=== PATIENT | female | born 1995 | race Two or more races ===

== ENCOUNTER 2020-07-14 16:55 | Emergency (ER) | payer OTHER ==
[~2020-07-14] VITALS: Ht 160 cm; Wt 86.8 kg
[2020-07-14 17:01] VITALS: BP 136/74
[2020-07-14] MEDS ORDERED: TRI-TAB (17:04)
--- NOTE | 2020-07-15 19:40 | ECGEPIP ---
[facility] - ED Test Date: 2020-07-14 Pat Name: DOUG LANTIGUA Department: Room: - Gender: Female Senior Risk Manager: MARIE : 1995 Requested By: Víctor Billy Order Number: [id number] Reading MD: Nila Augustine Measurements Intervals [place] Rate: 67 P: 67 [place]: 168 QRS: 58 QRSD: 84 T: 42 QT: 396 QTc: 418 Interpretive Statements Normal sinus rhythm with sinus arrhythmia No prior Electronically Signed on 07-15-2020 19:40:00 EDT by Nila Augustine
== END 2020-07-14 18:53 | disposition left against medical advice (07) ==
LOC: M ED 16:55
DX: Z53.21 Procedure and treatment not carried out due to patient leaving prior to being seen by health care provider (principal)

== ENCOUNTER → 2020-10-01 | Outpatient (CLI) | payer OTHER ==
[~2020-10-01] MED LIST: TRI-TAB
== END ==
LOC: M PLALAB 15:51
PROVIDERS: ATTEND Nurse Practitioner Family
DX: N92.6 Irregular menstruation, unspecified (principal)

== ENCOUNTER 2020-10-28 14:35 | Emergency (ER) | payer OTHER ==
[~2020-10-28] VITALS: Ht 160 cm; Wt 88.9 kg
[2020-10-28] MEDS ORDERED: PREN27TA3 (14:42)
[2020-10-28 16:02] LABS: BASO % 0.3 % (0.0-1.0); EOS # 0.1 10^3/uL (0.0-0.5); EOS % 0.8 % (0.0-3.0); HEMATOCRIT 37.9 % (36.0-47.0); HEMOGLOBIN 12.5 g/dl (12.0-15.5); LYMPH # 1.8 10^3/uL (1.5-5.0); LYMPH % 29.1 % (24.0-44.0); MEAN CORPUSCULAR HEMOGLOBIN 28.8 pg (27.0-33.0); MEAN CORPUSCULAR VOLUME 87.3 fl (80.0-96.0); MONO # 0.6 10^3/uL (0.0-0.8); NEUTROPHILS # 3.7 10^3/uL (1.5-8.5); NEUTROPHILS % 59.5 % (36.0-66.0); PLATELET COUNT, AUTOMATED 264 10^3/uL (150-450); RED BLOOD COUNT 4.34 10^6/uL (4.00-5.40); WHITE BLOOD COUNT 6.2 10^3/uL (4.0-10.0)
[2020-10-28 16:22] LABS: BLOOD UREA NITROGEN 10 MG/DL (7-18); CARBON DIOXIDE LEVEL 27 MEQ/L (21-32); CHLORIDE LEVEL 105 MEQ/L (98-107); CREATININE FOR GFR 0.67 MG/DL (0.55-1.30); GLOMERULAR FILTRATION RATE > 60.0 (>60); GLUCOSE, FASTING 102 MG/DL (70-100); SODIUM LEVEL 135 MEQ/L (136-145)
[2020-10-28 17:03] LABS: APPEARANCE, URINE CLEAR (CLEAR); BACTERIA, URINE AUTO NEGATIVE (NEGATIVE); BILIRUBIN, URINE AUTO NEGATIVE (NEGATIVE); BLOOD, URINE BLOOD NEGATIVE (NEGATIVE); COLOR, URINE YELLOW (YELLOW); GLUCOSE, URINE (UA) AUTO NEGATIVE (NEGATIVE); KETONE, URINE AUTO NEGATIVE (NEGATIVE); LEUKOCYTE ESTERASE, URINE AUTO NEGATIVE (NEGATIVE); NITRITE, URINE AUTO NEGATIVE (NEGATIVE); PROTEIN, URINE AUTO NEGATIVE (NEGATIVE); RBC, URINE AUTO 4 /HPF (0-3); SPECIFIC GRAVITY URINE AUTO 1.011 (1.002-1.035); SQUAMOUS EPITHELIAL CELL UR AU 1 /HPF (0-6); UROBILINOGEN, URINE AUTO 0.2 mg/dL (0.0-2.0); WBC, URINE AUTO 1 /HPF (0-3)
[2020-10-28 17:05] VITALS: BP 118/66
--- NOTE | 2020-10-29 23:59 | ECGEPIP ---
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 Order Number: [id number] Reading MD: Víctor Lozano Measurements Intervals [place] Rate: 80 P: 64 ID: 162 QRS: 40 QRSD: 82 T: 38 QT: 376 QTc: 433 Interpretive Statements Normal sinus rhythm INCOMPLETE RIGHT BUNDLE BRANCH BLOCK SIMILAR TO 07/14/20 Electronically Signed on 10-29-2020 23:59:21 EDT by Víctor Lozano
== END 2020-10-28 17:26 | disposition home or self-care (01) ==
LOC: M ED 14:35
DX: O99.891 Other specified diseases and conditions complicating pregnancy (principal); R55 Syncope and collapse; Z3A.00 Weeks of gestation of pregnancy not specified; Z91.013 Allergy to seafood

== ENCOUNTER → 2020-11-13 | Outpatient (CLI) | payer OTHER ==
[~2020-11-13] MED LIST changes: +PREN27TA3
[2020-11-13 11:38] LABS: BASO % 0.3 % (0.0-1.0); EOS # 0.1 10^3/uL (0.0-0.5); EOS % 0.8 % (0.0-3.0); HEMOGLOBIN 12.5 g/dl (12.0-15.5); LYMPH # 1.7 10^3/uL (1.5-5.0); LYMPH % 28.4 % (24.0-44.0); MEAN CORPUSCULAR HEMOGLOBIN 28.7 pg (27.0-33.0); MEAN CORPUSCULAR HGB CONC 32.9 g/dl (32.0-36.5); MEAN CORPUSCULAR VOLUME 87.4 fl (80.0-96.0); MONO # 0.6 10^3/uL (0.0-0.8); MONO % 9.5 % (2.0-8.0); NEUTROPHILS # 3.7 10^3/uL (1.5-8.5); NEUTROPHILS % 60.7 % (36.0-66.0); PLATELET COUNT, AUTOMATED 288 10^3/uL (150-450); RED BLOOD COUNT 4.35 10^6/uL (4.00-5.40); WHITE BLOOD COUNT 6.1 10^3/uL (4.0-10.0)
[2020-11-13 12:57] LABS: GC DNA AMPLIFICATION NEGATIVE (NEGATIVE)
[2020-11-13 13:57] LABS: HEPATITIS C VIRUS ABY INDEX 0.1 INDEX (<0.8); HIV 1&2 SCREEN CENTAUR NEGATIVE (NEGATIVE)
== END ==
LOC: M PLALAB 08:16
PROVIDERS: ATTEND Advanced Practice Midwife
DX: O30.041 Twin pregnancy, dichorionic/diamniotic, first trimester (principal); Z3A.00 Weeks of gestation of pregnancy not specified

== ENCOUNTER 2020-12-13 19:11 | Emergency (ER) | payer OTHER ==
[~2020-12-13] VITALS: Ht 160 cm; Wt 91.4 kg
[2020-12-13 19:13] VITALS: BP 113/79
[2020-12-13] MEDS ORDERED: ACET-840 PO (19:42)
--- OUTSIDE RECORDS SUMMARY | 2020-12-13 22:40 | CCD ---
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 Name Role Phone Jackelyn Guerra Unavailable PROBLEMS Type Condition ICD9-CM Code [id number] Code Onset Dates Condition S tatus W/U Status Risk SNOMED Code Notes Problem Missed menses N92.6 Active confirmed 243899 00 Problem Supervision of other normal Z34.80 Ac tive confirm 922986912 Problem Painful menstruation N94.6 Active confirmed 779391591 Problem Irregular menstrual bleeding N92.6 Active confirme d 43221377 ALLERGIES No Known Allergies ENCOUNTERS from 1995 to 2020-12-02 Encounter Location Date Provider Diagnosis [facility] [address] [place] [address] [place] [address] Nov, Jackelyn Guerra IMMUNIZATIONS No Information SOCIAL HISTORY Tobacco Use: Social History Observation Description Date Details (start date - stop date) Never Smoker Sex Assigned At : Social History Observation Description Sex Assigned At Unknown Education: Question Answer Notes Level of Education: College Audit Question Answer Notes Total Score: 1 Interpretation: Alcohol Education Language: Question Answer Notes Languages spoken: Andorran Christian: Question Answer Notes Christian 03 Sikhism Domestic Violence: Question Answer Notes Status: Sexual Hx: Question Answer Notes Had sex in the last 12 months (vaginal, oral, or anal)? Yes LMP: DEPO Have you ever had an STD? No with Men only Use protection? No Drug and Alcohol Question Answer Notes Total Score: 0 Interpretation: No problems reported Alcohol Screening: Question Answer Notes Did you have a drink containing alcohol in the past year? Ye s Points 1 Interpretation Negative How often did you have six or more drinks on one occas ion in the past year? Never (0 points) How many drinks did you have on a typica l day when you were drinking in the past year? 1 or 2 (0 points) How often did you have a drink containing alcohol in t he past year? Monthly or less (1 point) Tobacco Use: Question Answer Notes Are you a: never smoker REASON FOR REFERRAL No Information VITAL SIGNS No information MEDICATIONS Medication SIG (Take, Route, Frequency, Duration) Notes Start Da te End Date Status Amoxicillin-Pot Clavulanate 875-125 MG 1 tablet Orally every 12 hrs for 10 day(s) Sep, Not-Taking 27-1 MG 1 tablet Orally Once a day for 90 day(s) Sep, Active Albuterol Sulfate HFA 108 (90 Base) MCG/ACT 1 puff as needed Inhalation every 4 hrs for 30 Days Mar, Not-Taking Ferrous Gluconate 324 (38 Fe) MG 1 tablet with water o r juice between meals Orally twice per day for 60 day(s) Nov, Active Norgestim-Eth Estrad Triphasic 0.18/0.215/0.25 MG-35 M CG 1 tablet Orally Once a day for 90 day(s) Mar, Not-Taking Ibuprofen 800 MG 1 tablet with food or milk a s needed Orally Three times a day for 15 days Aug, Not-Taking Stool Softener 100 MG 1 capsule as needed for cons tipation Orally twice per day for 30 day(s) Nov, Active PROCEDURES No Information RESULTS No Results REASON FOR VISIT Appointment MEDICAL (GENERAL) HISTORY Type Description Date Surgical History No know Surgical history Hospitalization History COVID-19 for 1 month([place]) 03/2019 Goals Section No Information Health Concerns No Information MEDICAL EQUIPMENT No Information MENTAL STATUS No Information FUNCTIONAL STATUS No Information ASSESSMENTS No Information PLAN OF TREATMENT Medication Medication Name Sig Start Date Stop Date Stool Softener 100 MG 1 capsule as needed for cons tipation Orally twice per day for 30 day(s) Nov, Ferrous Gluconate 324 (38 Fe) MG 1 tablet with water o r juice between meals Orally twice per day for 60 day(s) Nov, Next Appt Details Provider Name:Jackelyn Geurra 2020-12-11 08:00:00 AM, [address] [facility], , [place], [address], Insurance Providers Payer Name Payer Address Payer Phone Insured Name Patient Relati onship to Insured Coverage Start Date Coverage End Date [address] [phone] DOUG LANTIGUA self
--- OUTSIDE RECORDS SUMMARY | 2020-12-13 22:40 | CCD ---
Author Author [facility] Organization [facility] Address Unknown Phone Unavailable Care Team Providers Care Sales And Service Engineer Name Role Phone Maring, Cornell PA Unavailable Unavailable Maring, Cornell PA Unavailable Unavailable Maring, Cornell PA Unavailable Unavailable Maring, Cornell PA Unavailable Unavailable Maring, Cornell PA Unavailable Unavailable Maring, Cornell PA Unavailable Unavailable Maring, Cornell PA Unavailable Unavailable Maring, Cornell PA Unavailable Unavailable Maring, Cornell PA Unavailable Unavailable Maring, Cornell PA Unavailable Unavailable Maring, Cornell PA Unavailable Unavailable Maring, Cornell PA Unavailable Unavailable Maring, Cornell PA Unavailable Unavailable Maring, Cornell PA Unavailable Unavailable Maring, Cornell PA Unavailable Unavailable Maring, Cornell PA Unavailable Unavailable Feola, T Rubi PA Unavailable Unavailable Feola, T Rubi PA Unavailable Unavailable Feola, T Rubi PA Unavailable Unavailable Feola, T Rubi PA Unavailable Unavailable Feola, T Rubi PA Unavailable Unavailable Feola, T Rubi PA Unavailable Unavailable Feola, T Rubi PA Unavailable Unavailable Feola, T Rubi PA Unavailable Unavailable Feola, T Rubi PA Unavailable Unavailable Feola, T Rubi PA Unavailable Unavailable Feola, T Rubi PA Unavailable Unavailable Feola, T Rubi PA Unavailable Unavailable Feola, T Rubi PA Unavailable Unavailable Feola, T Rubi PA Unavailable Unavailable Feola, T Rubi PA Unavailable Unavailable Feola, T Rubi PA Unavailable Unavailable Feola, T Rubi PA Unavailable Unavailable Feola, T Rubi PA Unavailable Unavailable Feola, T Rubi PA Unavailable Unavailable Feola, T Rubi PA Unavailable Unavailable Feola, T Rubi PA Unavailable Unavailable Feola, T Rubi PA Unavailable Unavailable Feola, T Rubi PA Unavailable Unavailable Feola, T Rubi PA Unavailable Unavailable Feola, T Rubi PA Unavailable Unavailable Feola, T Rubi PA Unavailable Unavailable Feola, T Rubi PA Unavailable Unavailable Feola, T Rubi PA Unavailable Unavailable Feola, T Rubi PA Unavailable Unavailable Feola, T Rubi PA Unavailable Unavailable Feola, T Rubi PA Unavailable Unavailable Feola, T Rubi PA Unavailable Unavailable Feola, T Rubi PA Unavailable Unavailable Feola, T Rubi PA Unavailable Unavailable Feola, T Rubi PA Unavailable Unavailable Feola, T Rubi PA Unavailable Unavailable Feola, T Rubi PA Unavailable Unavailable Feola, T Rubi PA Unavailable Unavailable Feola, T Rubi PA Unavailable Unavailable Feola, T Rubi PA Unavailable Unavailable Feola, T Rubi PA Unavailable Unavailable TURRIN, TAYE Unavailable Unavailable TURRIN, TAYE Unavailable Unavailable TURRIN, TAYE Unavailable Unavailable TURRIN, TAYE Unavailable Unavailable Brandyn, R Faina DESK REPRESENTATIVE Unavailable Unavailable Brandyn, R Faina DESK REPRESENTATIVE Unavailable Unavailable Brandyn, R Faina DESK REPRESENTATIVE Unavailable Unavailable Brandyn, R Faina DESK REPRESENTATIVE Unavailable Unavailable Brandyn, R Faina DESK REPRESENTATIVE Unavailable Unavailable Brandyn, R Faina DESK REPRESENTATIVE Unavailable Unavailable Brandyn, R Faina DESK REPRESENTATIVE Unavailable Unavailable Brandyn, R Faina DESK REPRESENTATIVE Unavailable Unavailable Brandyn, R Faina DESK REPRESENTATIVE Unavailable Unavailable Brandyn, R Faina DESK REPRESENTATIVE Unavailable Unavailable Brandyn, R Faina DESK REPRESENTATIVE Unavailable Unavailable Brandyn, R Faina DESK REPRESENTATIVE Unavailable Unavailable Brandyn, R Faina DESK REPRESENTATIVE Unavailable Unavailable Brandyn, R Faina DESK REPRESENTATIVE Unavailable Unavailable Brandyn, R Faina DESK REPRESENTATIVE Unavailable Unavailable Brandyn, R Faina DESK REPRESENTATIVE Unavailable Unavailable Brandyn, R Faina DESK REPRESENTATIVE Unavailable Unavailable Brandyn, R Faina DESK REPRESENTATIVE Unavailable Unavailable Brandyn, R Faina DESK REPRESENTATIVE Unavailable Unavailable Brandyn, R Faina DESK REPRESENTATIVE Unavailable Unavailable Brandyn, R Faina DESK REPRESENTATIVE Unavailable Unavailable Brandyn, R Faina DESK REPRESENTATIVE Unavailable Unavailable Brandyn, R Faina DESK REPRESENTATIVE Unavailable Unavailable Brandyn, R Faina DESK REPRESENTATIVE Unavailable Unavailable Brandyn, R Faina DESK REPRESENTATIVE Unavailable Unavailable Brandyn, R Faina DESK REPRESENTATIVE Unavailable Unavailable Brandyn, R Faina DESK REPRESENTATIVE Unavailable Unavailable Brandyn, R Faina DESK REPRESENTATIVE Unavailable Unavailable Brandyn, R Faina DESK REPRESENTATIVE Unavailable Unavailable Brandyn, R Faina DESK REPRESENTATIVE Unavailable Unavailable Brandyn, R Faina DESK REPRESENTATIVE Unavailable Unavailable Brandyn, R Faina DESK REPRESENTATIVE Unavailable Unavailable Brandyn, R Faina DESK REPRESENTATIVE Unavailable Unavailable Brandyn, R Faina DESK REPRESENTATIVE Unavailable Unavailable Brandyn, R Faina DESK REPRESENTATIVE Unavailable Unavailable Brandyn, R Faina DESK REPRESENTATIVE Unavailable Unavailable Brandyn, R Faina DESK REPRESENTATIVE Unavailable Unavailable Brandyn, R Faina DESK REPRESENTATIVE Unavailable Unavailable Brandyn, R Faina DESK REPRESENTATIVE Unavailable Unavailable Brandyn, R Faina DESK REPRESENTATIVE Unavailable Unavailable Re-disclosure Warning The records that you are about to access may contain information from federally-assisted alcohol or drug abuse programs. If such information is present, then the following federally mandated warning applies: This information has been disclosed to you from records protected by federal confidentiality rules (42 CFR part 2). The federal rules prohibit you from making any further disclosure of this information unless further disclosure is expressly permitted by the written consent of the person to whom it pertains or as otherwise permitted by 42 CFR part 2. A general authorization for the release of medical or other information is NOT sufficient for this purpose. The Federal rules restrict any use of the information to criminally investigate or prosecute any alcohol or drug abuse patient.The records that you are about to access may contain highly sensitive health information, the redisclosure of which is protected by Article 27-F of the [facility] Public Health law. If you continue you may have access to information: Regarding HIV / AIDS; Provided by facilities licensed or operated by the [facility] Office of Mental Health; or Provided by the [facility] Office for People With Developmental Disabilities. If such information is present, then the following [facility] mandated warning applies: This information has been disclosed to you from confidential records which are protected by state law. State law prohibits you from making any further disclosure of this information without the specific written consent of the person to whom it pertains, or as otherwise permitted by law. Any unauthorized further disclosure in violation of state law may result in a fine or prison sentence or both. A general authorization for the release of medical or other information is NOT sufficient authorization for further disc losure. Encounters Encounter Providers Location Date Indications Data Source(s ) Unknown [address] [facility] [place] [address] 12/01/2020 12:00:00 AM EDT eCW1 ([facility]) Unknown [address] [facility] [place] [address] 11/30/2020 12:00:00 AM EDT eCW1 ([facility]) Unknown [address] [facility] [place] [address] 11/13/2020 12:00:00 AM EDT eCW1 ([facility]) ([facility]) [facility] OB Visit [address] [place] [address] 11/12/2020 12:00:00 AM EDT eCW1 ([facility]) Unknown [address] [facility] [place] [address] 11/06/2020 12:00:00 AM EDT eCW1 ([facility]) Unknown [address] [facility] [place] [address] 10/26/2020 12:00:00 AM EDT eCW1 ([facility]) Unknown [address] [facility] [place] [address] 10/02/2020 12:00:00 AM EDT eCW1 ([facility]) Unknown [address] [facility] [address] 10/01/2020 12:00:00 AM EDT eCW1 ([facility]) Outpatient [address] [facility] [address] 09/28/2020 12:00:00 AM EDT eCW1 ([facility]) Outpatient 09/21/2020 02:43:40 PM EDT [facility] ([facility]) Outpatient Attender: Rubi STANTON 021 02:41:42 PM EDT - 09/21/2020 05:00:53 PM EDT [facility] ([facility] ) Outpatient Attender: Cornell STANTON 09/20/19 10:37:53 AM EDT - 09/19/2020 10:48:32 AM EDT [facility] ([facility] ) Emergency Attender: TAYE Rothmansultant: Faina adame DESK REPRESENTATIVE 08/21/2020 09:22:00 PM EDT - 08/22/2020 04:27:00 AM EDT [facility] Patient discharged. [place] [address] [facility] [place] [address] 08/21/2020 12:00:00 AM EDT eCW1 ([facility]) Unknown [address] [facility] [address] [place] [address] 08/12/2020 12:00:00 AM EDT eCW1 ([facility]) Unknown [address] [facility] [place] [address] 07/14/2020 12:00:00 AM EDT eCW1 ([facility]) [place] [address] [facility] [address] 03/26/2020 12:00:00 AM EST eCW1 ([facility]) Outpatient Attender: Rubi STANTON 021 11:08:53 AM EST - 03/13/2020 11:30:18 AM EST [facility] ([facility] ) Outpatient Attender: Cornell STANTON 03/07/19 09:53:03 AM EST - 03/07/2020 10:33:52 AM EST [facility] ([facility] ) Medications Medication Brand Name Start Date Product Form Dose Route Admi nistrative Instructions Pharmacy Instructions Status Indications Reaction Description Data Source(s) Docusate Sodium 100 MG Oral Capsule Stool Softener [address] ool Softener 100 MG 11/12/2020 12:00:00 AM EDT active Stool Softener 100 MG eCW1 ([facility]) ferrous gluconate 324 MG Oral Tablet Ferrous Gluconate 324 (38 Fe) MG Ferrous Gluconate 324 (38 Fe) MG 11/12/2020 12:00:00 AM EDT active Ferrous Gluconate 324 (38 Fe) MG eCW1 ([facility]) ferrous gluconate 324 MG Oral Tablet Ferrous Gluconate 324 (38 Fe) MG Ferrous Gluconate 324 (38 Fe) MG 11/12/2020 12:00:00 AM EDT active Ferrous Gluconate 324 (38 Fe) MG eCW1 ([facility]) Docusate Sodium 100 MG Oral Capsule Stool Softener [address] ool Softener 100 MG 11/12/2020 12:00:00 AM EDT active Stool Softener 100 MG eCW1 ([facility]) ferrous gluconate 324 MG Oral Tablet Ferrous Gluconate 324 (38 Fe) MG Ferrous Gluconate 324 (38 Fe) MG 11/12/2020 12:00:00 AM EDT active Ferrous Gluconate 324 (38 Fe) MG eCW1 ([facility]) Docusate Sodium 100 MG Oral Capsule Stool Softener [address] ool Softener 100 MG 11/12/2020 12:00:00 AM EDT active Stool Softener 100 MG eCW1 ([facility]) ferrous gluconate 324 MG Oral Tablet Ferrous Gluconate 324 (38 Fe) MG Ferrous Gluconate 324 (38 Fe) MG 11/12/2020 12:00:00 AM EDT active Ferrous Gluconate 324 (38 Fe) MG eCW1 ([facility]) ferrous gluconate 324 MG Oral Tablet Ferrous Gluconate 324 (38 Fe) MG Ferrous Gluconate 324 (38 Fe) MG 11/12/2020 12:00:00 AM EDT active Ferrous Gluconate 324 (38 Fe) MG eCW1 ([facility]) Docusate Sodium 100 MG Oral Capsule Stool Softener [address] ool Softener 100 MG 11/12/2020 12:00:00 AM EDT active Stool Softener 100 MG eCW1 ([facility]) Docusate Sodium 100 MG Oral Capsule Stool Softener [address] ool Softener 100 MG 11/12/2020 12:00:00 AM EDT active Stool Softener 100 MG eCW1 ([facility]) 27-1 MG 27-1 MG 10/01/2020 12:00:00 AM EDT 1.0 {tablet} active 27-1 MG eCW1 ([facility]) 27-1 MG 27-1 MG 10/01/2020 12:00:00 AM EDT 1.0 {tablet} active 27-1 MG eCW1 ([facility]) 27-1 MG 27-1 MG 10/01/2020 12:00:00 AM EDT 1.0 {tablet} active 27-1 MG eCW1 ([facility]) 27-1 MG 27-1 MG 10/01/2020 12:00:00 AM EDT 1.0 {tablet} active 27-1 MG eCW1 ([facility]) 27-1 MG 27-1 MG 10/01/2020 12:00:00 AM EDT 1.0 {tablet} active 27-1 MG eCW1 ([facility]) 27-1 MG 27-1 MG 10/01/2020 12:00:00 AM EDT 1.0 {tablet} active 27-1 MG eCW1 ([facility]) 27-1 MG 27-1 MG 10/01/2020 12:00:00 AM EDT 1.0 {tablet} active 27-1 MG eCW1 ([facility]) 27-1 MG 27-1 MG 10/01/2020 12:00:00 AM EDT 1.0 {tablet} active 27-1 MG eCW1 ([facility]) Amoxicillin 875 MG / Clavulanate 125 MG Oral Tablet Amoxicillin-Pot Clavulanate 875-125 MG Amoxicillin-Pot Clavulanate 875-125 MG 09/28/2020 12:00:00 AM ED T 1.0 {tablet} suspended Amoxicillin-Pot C lavulanate 875-125 MG eCW1 ([facility]) Amoxicillin 875 MG / Clavulanate 125 MG Oral Tablet Amoxicillin-Pot Clavulanate 875-125 MG Amoxicillin-Pot Clavulanate 875-125 MG 09/28/2020 12:00:00 AM ED T 1.0 {tablet} active Amoxicillin-Pot Cla vulanate 875-125 MG eCW1 ([facility]) Amoxicillin 875 MG / Clavulanate 125 MG Oral Tablet Amoxicillin-Pot Clavulanate 875-125 MG Amoxicillin-Pot Clavulanate 875-125 MG 09/28/2020 12:00:00 AM ED T 1.0 {tablet} suspended Amoxicillin-Pot C lavulanate 875-125 MG eCW1 ([facility]) Amoxicillin 875 MG / Clavulanate 125 MG Oral Tablet Amoxicillin-Pot Clavulanate 875-125 MG Amoxicillin-Pot Clavulanate 875-125 MG 09/28/2020 12:00:00 AM ED T 1.0 {tablet} active Amoxicillin-Pot Cla vulanate 875-125 MG eCW1 ([facility]) Amoxicillin 875 MG / Clavulanate 125 MG Oral Tablet Amoxicillin-Pot Clavulanate 875-125 MG Amoxicillin-Pot Clavulanate 875-125 MG 09/28/2020 12:00:00 AM ED T 1.0 {tablet} active Amoxicillin-Pot Cla vulanate 875-125 MG eCW1 ([facility]) Amoxicillin 875 MG / Clavulanate 125 MG Oral Tablet Amoxicillin-Pot Clavulanate 875-125 MG Amoxicillin-Pot Clavulanate 875-125 MG 09/28/2020 12:00:00 AM ED T 1.0 {tablet} active Amoxicillin-Pot Cla vulanate 875-125 MG eCW1 ([facility]) Amoxicillin 875 MG / Clavulanate 125 MG Oral Tablet Amoxicillin-Pot Clavulanate 875-125 MG Amoxicillin-Pot Clavulanate 875-125 MG 09/28/2020 12:00:00 AM ED T 1.0 {tablet} suspended Amoxicillin-Pot C lavulanate 875-125 MG eCW1 ([facility]) Amoxicillin 875 MG / Clavulanate 125 MG Oral Tablet Amoxicillin-Pot Clavulanate 875-125 MG Amoxicillin-Pot Clavulanate 875-125 MG 09/28/2020 12:00:00 AM ED T 1.0 {tablet} suspended Amoxicillin-Pot C lavulanate 875-125 MG eCW1 ([facility]) Amoxicillin 875 MG / Clavulanate 125 MG Oral Tablet Amoxicillin-Pot Clavulanate 875-125 MG Amoxicillin-Pot Clavulanate 875-125 MG 09/28/2020 12:00:00 AM ED T 1.0 {tablet} suspended Amoxicillin-Pot C lavulanate 875-125 MG eCW1 ([facility]) Ibuprofen 800 MG Oral Tablet Ibuprofen 800 MG 08/12/2020 12:00:00 AM E DT active Ibuprofen 800 MG [facility] Ibuprofen 800 MG Oral Tablet Ibuprofen 800 MG 08/12/2020 12:00:00 AM E DT suspended Ibuprofen 800 MG [facility]CW1 [facility]) Ibuprofen 800 MG Oral Tablet Ibuprofen 800 MG 08/12/2020 12:00:00 AM E DT active Ibuprofen 800 MG [facility]CW1 [facility]) Ibuprofen 800 MG Oral Tablet Ibuprofen 800 MG 08/12/2020 12:00:00 AM E DT suspended Ibuprofen 800 MG eCW1 [facility]) Ibuprofen 800 MG Oral Tablet Ibuprofen 800 MG 08/12/2020 12:00:00 AM E DT suspended Ibuprofen 800 MG eCW1 [facility]) Ibuprofen 800 MG Oral Tablet Ibuprofen 800 MG 08/12/2020 12:00:00 AM E DT active Ibuprofen 800 MG eCW1 [facility]) Ibuprofen 800 MG Oral Tablet Ibuprofen 800 MG 08/12/2020 12:00:00 AM E DT active Ibuprofen 800 MG eCW1 [facility]) Ibuprofen 800 MG Oral Tablet Ibuprofen 800 MG 08/12/2020 12:00:00 AM E DT suspended Ibuprofen 800 MG eCW1 [facility]) Ibuprofen 800 MG Oral Tablet Ibuprofen 800 MG 08/12/2020 12:00:00 AM E DT active Ibuprofen 800 MG eCW1 [facility]) Ibuprofen 800 MG Oral Tablet Ibuprofen 800 MG 08/12/2020 12:00:00 AM E DT active Ibuprofen 800 MG eCW1 [facility]) Ibuprofen 800 MG Oral Tablet Ibuprofen 800 MG 08/12/2020 12:00:00 AM E DT suspended Ibuprofen 800 MG eCW1 ([facility]) Norgestim-Eth Estrad Triphasic 0.18/0.215/0.25 MG-35 M CG Norgestim-Eth Estrad Triphasic 0.18/0.215/0.25 MG-35 MCG 03/26/2020 12:00:00 AM EST 1.0 {tablet} active Norgestim-Eth Estrad Trip hasic 0.18/0.215/0.25 MG-35 MCG eCW1 ([facility]) Norgestim-Eth Estrad Triphasic 0.18/0.215/0.25 MG-35 M CG Norgestim-Eth Estrad Triphasic 0.18/0.215/0.25 MG-35 MCG 03/26/2020 12:00:00 AM EST 1.0 {tablet} active Norgestim-Eth Estrad Trip hasic 0.18/0.215/0.25 MG-35 MCG eCW1 ([facility]) Albuterol Sulfate HFA 108 (90 Base) MCG/ACT Albuterol Sulfate HFA 108 (90 Base) MCG/ACT 03/26/2020 12:00:00 AM EST 1.0 {puff_as_needed} suspended Albuterol Sulfate HFA 108 (90 Base) MCG/ACT eCW1 ([facility]) Albuterol Sulfate HFA 108 (90 Base) MCG/ACT Albuterol Sulfate HFA 108 (90 Base) MCG/ACT 03/26/2020 12:00:00 AM EST 1.0 {puff_as_needed} suspended Albuterol Sulfate HFA 108 (90 Base) MCG/ACT eCW1 ([facility]) Albuterol Sulfate HFA 108 (90 Base) MCG/ACT Albuterol Sulfate HFA 108 (90 Base) MCG/ACT 03/26/2020 12:00:00 AM EST 1.0 {puff_as_needed} suspended Albuterol Sulfate HFA 108 (90 Base) MCG/ACT eCW1 ([facility]) Norgestim-Eth Estrad Triphasic 0.18/0.215/0.25 MG-35 M CG Norgestim-Eth Estrad Triphasic 0.18/0.215/0.25 MG-35 MCG 03/26/2020 12:00:00 AM EST 1.0 {tablet} active Norgestim-Eth Estrad Trip hasic 0.18/0.215/0.25 MG-35 MCG eCW1 ([facility]) Norgestim-Eth Estrad Triphasic 0.18/0.215/0.25 MG-35 M CG Norgestim-Eth Estrad Triphasic 0.18/0.215/0.25 MG-35 MCG 03/26/2020 12:00:00 AM EST 1.0 {tablet} suspended Norgestim-Eth Estrad Trip hasic 0.18/0.215/0.25 MG-35 MCG eCW1 ([facility]) Albuterol Sulfate HFA 108 (90 Base) MCG/ACT Albuterol Sulfate HFA 108 (90 Base) MCG/ACT 03/26/2020 12:00:00 AM EST 1.0 {puff_as_needed} active Albuterol Sulfate HFA 108 (90 Base) MCG/ACT eCW1 ([facility]) Albuterol Sulfate HFA 108 (90 Base) MCG/ACT Albuterol Sulfate HFA 108 (90 Base) MCG/ACT 03/26/2020 12:00:00 AM EST 1.0 {puff_as_needed} suspended Albuterol Sulfate HFA 108 (90 Base) MCG/ACT eCW1 ([facility]) Albuterol Sulfate HFA 108 (90 Base) MCG/ACT Albuterol Sulfate HFA 108 (90 Base) MCG/ACT 03/26/2020 12:00:00 AM EST 1.0 {puff_as_needed} suspended Albuterol Sulfate HFA 108 (90 Base) MCG/ACT eCW1 ([facility]) Albuterol Sulfate HFA 108 (90 Base) MCG/ACT Albuterol Sulfate HFA 108 (90 Base) MCG/ACT 03/26/2020 12:00:00 AM EST 1.0 {puff_as_needed} suspended Albuterol Sulfate HFA 108 (90 Base) MCG/ACT eCW1 ([facility]) Albuterol Sulfate HFA 108 (90 Base) MCG/ACT Albuterol Sulfate HFA 108 (90 Base) MCG/ACT 03/26/2020 12:00:00 AM EST 1.0 {puff_as_needed} active Albuterol Sulfate HFA 108 (90 Base) MCG/ACT eCW1 ([facility]) Norgestim-Eth Estrad Triphasic 0.18/0.215/0.25 MG-35 M CG Norgestim-Eth Estrad Triphasic 0.18/0.215/0.25 MG-35 MCG 03/26/2020 12:00:00 AM EST 1.0 {tablet} active Norgestim-Eth Estrad Trip hasic 0.18/0.215/0.25 MG-35 MCG eCW1 ([facility]) Norgestim-Eth Estrad Triphasic 0.18/0.215/0.25 MG-35 M CG Norgestim-Eth Estrad Triphasic 0.18/0.215/0.25 MG-35 MCG 03/26/2020 12:00:00 AM EST 1.0 {tablet} active Norgestim-Eth Estrad Trip hasic 0.18/0.215/0.25 MG-35 MCG eCW1 ([facility]) Norgestim-Eth Estrad Triphasic 0.18/0.215/0.25 MG-35 M CG Norgestim-Eth Estrad Triphasic 0.18/0.215/0.25 MG-35 MCG 03/26/2020 12:00:00 AM EST 1.0 {tablet} suspended Norgestim-Eth Estrad Trip hasic 0.18/0.215/0.25 MG-35 MCG eCW1 ([facility]) Norgestim-Eth Estrad Triphasic 0.18/0.215/0.25 MG-35 M CG Norgestim-Eth Estrad Triphasic 0.18/0.215/0.25 MG-35 MCG 03/26/2020 12:00:00 AM EST 1.0 {tablet} active Norgestim-Eth Estrad Trip hasic 0.18/0.215/0.25 MG-35 MCG eCW1 ([facility]) Albuterol Sulfate HFA 108 (90 Base) MCG/ACT Albuterol Sulfate HFA 108 (90 Base) MCG/ACT 03/26/2020 12:00:00 AM EST 1.0 {puff_as_needed} suspended Albuterol Sulfate HFA 108 (90 Base) MCG/ACT eCW1 ([facility]) Norgestim-Eth Estrad Triphasic 0.18/0.215/0.25 MG-35 M CG Norgestim-Eth Estrad Triphasic 0.18/0.215/0.25 MG-35 MCG 03/26/2020 12:00:00 AM EST 1.0 {tablet} suspended Norgestim-Eth Estrad Trip hasic 0.18/0.215/0.25 MG-35 MCG eCW1 ([facility]) Norgestim-Eth Estrad Triphasic 0.18/0.215/0.25 MG-35 M CG Norgestim-Eth Estrad Triphasic 0.18/0.215/0.25 MG-35 MCG 03/26/2020 12:00:00 AM EST 1.0 {tablet} active Norgestim-Eth Estrad Trip hasic 0.18/0.215/0.25 MG-35 MCG eCW1 ([facility]) Norgestim-Eth Estrad Triphasic 0.18/0.215/0.25 MG-35 M CG Norgestim-Eth Estrad Triphasic 0.18/0.215/0.25 MG-35 MCG 03/26/2020 12:00:00 AM EST 1.0 {tablet} active Norgestim-Eth Estrad Trip hasic 0.18/0.215/0.25 MG-35 MCG eCW1 ([facility]) Albuterol Sulfate HFA 108 (90 Base) MCG/ACT Albuterol Sulfate HFA 108 (90 Base) MCG/ACT 03/26/2020 12:00:00 AM EST 1.0 {puff_as_needed} suspended Albuterol Sulfate HFA 108 (90 Base) MCG/ACT eCW1 ([facility]) Albuterol Sulfate HFA 108 (90 Base) MCG/ACT Albuterol Sulfate HFA 108 (90 Base) MCG/ACT 03/26/2020 12:00:00 AM EST 1.0 {puff_as_needed} suspended Albuterol Sulfate HFA 108 (90 Base) MCG/ACT eCW1 ([facility]) Norgestim-Eth Estrad Triphasic 0.18/0.215/0.25 MG-35 M CG Norgestim-Eth Estrad Triphasic 0.18/0.215/0.25 MG-35 MCG 03/26/2020 12:00:00 AM EST 1.0 {tablet} suspended Norgestim-Eth Estrad Trip hasic 0.18/0.215/0.25 MG-35 MCG eCW1 ([facility]) Albuterol Sulfate HFA 108 (90 Base) MCG/ACT Albuterol Sulfate HFA 108 (90 Base) MCG/ACT 03/26/2020 12:00:00 AM EST 1.0 {puff_as_needed} active Albuterol Sulfate HFA 108 (90 Base) MCG/ACT eCW1 ([facility]) Albuterol Sulfate HFA 108 (90 Base) MCG/ACT Albuterol Sulfate HFA 108 (90 Base) MCG/ACT 03/26/2020 12:00:00 AM EST 1.0 {puff_as_needed} suspended Albuterol Sulfate HFA 108 (90 Base) MCG/ACT eCW1 ([facility]) Norgestim-Eth Estrad Triphasic 0.18/0.215/0.25 MG-35 M CG Norgestim-Eth Estrad Triphasic 0.18/0.215/0.25 MG-35 MCG 03/26/2020 12:00:00 AM EST 1.0 {tablet} suspended Norgestim-Eth Estrad Trip hasic 0.18/0.215/0.25 MG-35 MCG eCW1 ([facility]) Insurance Providers Payer name Policy type / Coverage type Policy ID Covered democrat ID Covered democrat's relationship to alejo Policy Alejo Plan Information [employer] [id number] Self [id number] RPR- Needs Payer Match [id number] Self [id number] [employer] emp [id number] Employee [id number] RPR- Needs Payer Match [id number] Self [id number] [facility] [id number] [facility] [id number] 18 [id number] Problems, Conditions, and Diagnoses Code Display Name Description Problem Type Effective Dates Data Source(s) Z6833 Body mass index [BMI] 33.0-33.9, adult B rhonda mass index [BMI] 33.0-33.9, adult Diagnosis 08/21/2020 09:22:00 PM EDT [facility] E669 Obesity, unspecified Obesity, unspecified Diagnosis 08/21/2020 09:22:00 PM EDT [facility] N3000 Acute cystitis without hematuria Acute cystitis without hematuria Diagnosis 08/21/2020 09:22:00 PM EDT [facility] R1031 Right lower quadrant pain Right lower quadrant pain Di agnosis 08/21/2020 09:22:00 PM EDT [facility] Z34.80 care Supervision of other normal P yakovlem 11/06/2020 12:00:00 AM EDT eCW1 ([facility]) N92.6 [id number] Missed menses Problem 10/01/2020 12:00:00 AM EDT eCW1 ([facility]) N92.6 [id number] Irregular menstrual bleeding Problem 021 12:00:00 AM EDT eCW1 ([facility]) N94.6 [id number] Painful menstruation Problem 08/12/2020 12:0 0:00 AM EDT eCW1 ([facility]) Surgeries/Procedures No Information Results ID Date Data Source URINE CULTURE 11/13/2020 12:00:00 AM EDT eCW1 ([facility]) Name Value Range Interpretation Code Description Data Abiola rce(s) Supporting Document(s) URINE CULTURE eCW1 ([facility]) ID Date Data Source HBSAG 11/13/2020 12:00:00 AM EDT [facility] [facility]) Name Value Range Interpretation Code Description Data Abiola rce(s) Supporting Document(s) NEGATIVE NEGATIVE HBsAg eCW1 ([facility]) ID Date Data Source RUBELLA IMMUNE STATUS IgG 11/13/2020 12:00:00 AM EDT eCW1 ([facility]) Name Value Range Interpretation Code Description Data Abiola rce(s) Supporting Document(s) IMMUNE IMMUNE RUBELLA IgG QUALITATIVE eCW1 ( [facility]) ID Date Data Source SYPHILIS ANTIBODY (RPR SCREEN) 11/13/2020 12:00:00 AM EDT eC W1 ([facility]) Name Value Range Interpretation Code Description Data Abiola rce(s) Supporting Document(s) NONREACTIVE NONREACTIVE SYPHILIS eCW1 ([facility]) ID Date Data Source [id number] 11/13/2020 12:00:00 AM EDT eCW1 ([facility]) Name Value Range Interpretation Code Description Data Abiola rce(s) Supporting Document(s) HIV 1and2 ANTIBODY SCREEN eCW1 ([facility]) ID Date Data Source HEPATITIS C ANTIBODY INDEX 11/13/2020 12:00:00 AM EDT eCW1 ( [facility]) Name Value Range Interpretation Code Description Data Abiola rce(s) Supporting Document(s) 0.1 <0.8 HEPATITIS C VIRUS KIMBERLY INDEX eC W1 ([facility]) ID Date Data Source CHLAMYDIA & GC DNA AMPLIFICAT 11/13/2020 12:00:00 AM EDT eCW 1 ([facility]) Name Value Range Interpretation Code Description Data Abiola rce(s) Supporting Document(s) Chlamydia trachomatis rRNA [Presence] in Unspecified specimen by Probe and target amplification method NEGATIVE NEGATIVE CHLAMYDIA DNA AMPLIFICATION eCW1 ([facility]) ID Date Data Source Type and Screen Prenatal1 11/13/2020 12:00:00 AM EDT eCW1 ([facility]) Name Value Range Interpretation Code Description Data Abiola rce(s) Supporting Document(s) NEGATIVE AB SCREEN PNP1 GEL (VIS) eCW1 ([facility]) ID Date Data Source [id number] 09/21/2020 02:45:00 PM EDT [facility] Name Value Range Interpretation Code Description Data Abiola rce(s) Supporting Document(s) SARS-CoV-2 RNA Resp Ql DAVID+probe NOT DETECTED [facility] This lab was ordered by KATHY michel and reported by KATHY Jasso. ID Date Data Source [id number] 08/21/2020 09:22:00 PM EDT [facility] 1 OrderSheet [facility] Emergency Department [address] [place] [address] Phone #: [phone]- [phone] 08/21/2020 21:08 Patient: DOUG LANTIGUA Sex: F : 1995 Age: 24yWEIGHT:86.6 kg (S) HEIGHT:63 inches (S) BMI:33.8ALLERGIES: Shellfish-derived ProductsCHIEF COMPLAINT: abdominal painDIAGNOSIS: Urinary tract infectious diseaseLAB ORDERSOrder Description Priority Entered Acknowledged InitialedCBC w Diff STAT 23:20 08/21/2020 23:49 Curtis Bailey Riccardo Laura R.N. MChristineDChristine;CMP STAT 23:20 08/21/2020 23:49 Curtis Bailey Riccardo Laura R.N. M.DChristine;Lipase STAT 23:20 08/21/2020 23:49 Curtis Bailey Riccardo Laura R.N. M.DChristine;Urinalysis (Clean STAT 23:20 08/21/2020 23:26 Vicente Petersen) Lee Pollack M.D.;Lactic Acid STAT 23:20 08/21/2020 23:49 Curtis Bailey Riccardo Laura R.NChristine MMagy;Beta- HCG, Qual STAT 23:20 08/21/2020 23:49 Lynn,Serum Taye Pollack.NChristine MMagy;Culture, Urine STAT 00:39 08/22/2020 00:40 Noemí ThaoUrine, Clean Taye Pollack M.D.;DIAGNOSTIC STUDY ORDERSOrder Description Priority Entered Acknowledged InitialedCT Abd PEL W/ IV STAT 00:39 08/22/2020 Ack'd: 00:41 Casandra Bailey R.N.Contrast Only Jon Pollackcardo Cancelled: Patient Refusal 00:43 Master(Oxygen?(No)) Ngoc; Bianka(IV?(Yes)) Reason for Study: rlq pain x 2 daysCT Abd PEL W/ IV STAT 00:57 08/22/2020 Ack'd: 00:57 01:30 Master,Contrast Only Candierin, TayeCasandra Peter 2 OrderSheet [facility] Emergency Department [address] [place] [address] Phone #: ext- [phone] 08/21/2020 21:08 Patient: DOUG LANTIGUA Sex: F : 1995 Age: 24y(Oxygen?(No)) Ngoc; R.N.(IV?(Yes)) Reason for Study: RLQ pain x 3 daysMEDICATION/IV/DRIP/FLUID ORDERSOrder Description Priority Entered Acknowledged InitialedNS IV 1000 mL 23:21 08/21/2020 23:51 Melaragno,Bolus: : Bolus 1000 Turrin, Taye Casandra R.N.mL (X1) Ngoc;Zofran 4 mg IVP X 1 23:21 08/21/2020 23:50 Melaragno,dose: 4 mg (NOW Turrin, Taye Casandra R.N.x1) Ngoc;Pepcid IVPB 20 23:21 08/21/2020 23:51 Melaragno,mg/50mL (NOW x1, Turrin, Taye Casandra R.N.Infuse over 30 M.D.;minutes.)Macrobid PO 100 04:11 08/22/2020 04:26 mg Curtis Bailey Riccardo Laura R.N. M.D.;Pyridium PO 100 04:11 08/22/2020 04:26 mg Curtis Bailey Riccardo Laura R.N. M.D.;GENERAL ORDERSOrder Description Priority Entered Acknowledged InitialedNPO 23:20 08/21/2020 23:49 Curtis Bailey Riccardo Laura R.N. M.D.;Saline Lock 23:08/21/2020 23:49 Curtis Bailey Riccardo Laura R.N. M.D.;[Electronically signed by Casandra Bailey R.N. (04:08/22/2020)][Electronically signed by Taye Pollack M.D. (04:08/22/2020)][Electronically locked by Casandra Bailey R.N. (:08/22/2020)] Name Value Range Interpretation Code Description Data Abiola rce(s) Supporting Document(s) ID Date Data Source [id number] 08/21/2020 09:22:00 PM EDT [facility] 1 Medication Reconciliation Report [facility] Emergency Department [address] [place] [address] Phone #: ext- [phone] 08/21/2020 21:08 Patient: DOUG LANTIGUA Sex: F : 1995 Age: 24yWeight: 86.6 kgHeight/Length: 63 in.BMI: 33.8ALLERGIES: Shellfish-derived ProductsThe patient's Home Medications are listed below:CONTINUE TAKING THE FOLLOWING MEDICATIONS: Control PillsThe source(s) of the original Home Medication information:Not obtained.The following Medications were given to the patient in the Emergency Department:Zofran [IVP] IVP 4 mg, administered: 23:50 08/21/2020epcid [IVPB] IVPB bolus 0, then 20 mg 100 mL/hr, administered: 23:51 08/21/2020odium Chloride [IV] IV Fluids bolus 0, then 1000 mL/hr, administered: 23:51 08/21/2020Macrobid [PO] PO 100 mg, administered: 04:26 08/22/2020yridium [PO] PO 100 mg, administered: 04:26 08/22/2020The following Medications were prescribed to the patient:Macrobid 100 mg capsule Take 1 capsule twice a day for 5 days -- Dispense 10 capsule. Refills: 0.Substitution permitted.Pharmacy - [facility] [id number] ; [place] [address]. FaxNumber: .Pyridium 100 mg tablet Take 1 tablet three times a day for 3 days -- D ispense 9 tablet. Refills: 0.Substitution permitted.Pharmacy - [facility] [id number] ; [place] [address]. . -- Taye Pollack M.D. Name Value Range Interpretation Code Description Data Abiola rce(s) Supporting Document(s) ID Date Data Source [id number] 08/21/2020 09:22:00 PM EDT [facility] 1 Medication Administration Record [facility] Emergency Department [address] [place] [address] Phone #: ext- [phone] 08/21/2020 21:08 Patient: DOUG LANTIGUA Sex: F : 1995 Age: 24yWeight: 86.6 kgHeight/Length: 63 inBMI: 33.8ALLERGIES: Shellfish-derived Products Date/Time Medication Administered Medication OrderedStart SODIUM CHLORIDE [IV] NS IV 1000 mL Bolus: : Bolus 242873:[id number] 08/21/2020 Dose: IV Fluids mL (X1)Casandra Bailey R.N. Rate: 1000 mL/hr over 1 hour(s)---- Dispensed: 1000 mL bagStop Site: #1 left AC02:03 08/22/2020Casandra Bailey R.N.Given ZOFRAN [IVP] (ONDANSETRON HCL) Zofran 4 mg IVP X 1 dose: 4 mg23:50 08/21/2020 Dose: 4 mg IVP (NOW x1)Casandra Bailey R.N. Site: #1 left ACStart PEPCID [IVPB] Pepcid IVPB 20 mg/50mL (NOW23:51 08/21/2020 Dose: 20 mg IVPB x1, Infuse over 30 minutes.)Casandra Bailey R.N. Rate: 100 mL/hr over 30 minute(s)---- Dispensed: 50 mL bagStop Site: #1 left AC00:24 08/22/2020Bianka block,Given MACROBID [PO] (NITROFURANTOIN Macrobid PO 100 mg04:26 08/22/2020 MONOHYD MACRO)Casandra Bailey R.N. Dose: 100 mg POGiven PYRIDIUM [PO] (PHENAZOPYRIDINE Pyridium PO 100 mg04:26 08/22/2020 HCL)Casandra Bailey R.N. Dose: 100 mg PO Name Value Range Interpretation Code Description Data Abiola rce(s) Supporting Document(s) ID Date Data Source [id number] 08/21/2020 09:22:00 PM EDT [facility] 1 General Instructions [facility] Emergency Department [address] [place] [address] Phone #: ext- [phone] 08/21/2020 21:08 Patient: DOUG LANTIGUA Sex: F : 1995 Age: 24yAcute urinary tract infection with cystitis. No hematuria.INSTRUCTIONSDrink plenty of fluids. Avoid alcohol. Avoid fatty, fried/greasy, lactose-containing (such as milk, cheeseand ice cream), salty and spicy foods. No alcohol.Warnings: Further evaluation is necessary. It is very important to follow up with a healthcare provider.GENERAL WARNINGS: Return or contact your physician immediately if your condition worsens orchanges unexpectedly, if not improving as expected, or if other problems arise. SPECIFICALLY, return ifyou develop pain in the abdomen, pelvis, back or shoulder, fever, vomiting, the inability to keep fluidsdown, blood in vomitus, blood in diarrhea, fainting or lightheadedness.Your Current Medications: Your current home medications have been reviewed.CONTINUE TAKING THE FOLLOWING MEDICATIONS: Control Pills*.Prescription Medications:Macrobid 100 mg capsule Take 1 capsule twice a day for 5 days -- Dispense 10 capsule. Refills: 0.Substitution permitted.[facility] [id number] ; [place] [address]. .Pyridium 100 mg tablet Take 1 tablet three times a day for 3 days -- Dispense 9 tablet. Refills: 0.Substitution permitted.[facility] [id number] ; [place] [address]. .Follow-up:Return to the emergency department as needed. Follow up with your healthcare provider in three dayseven if well. Call for an appointment. Reason for referral: evaluation and treatment. Summary of careprovided to patient via paper.Understanding of the discharge instructions verbalized by patient. Expected course of illness, dischargeinstructions, activity level, diet, prescriptions x2, follow-up appointment and risks and benefits of treatmentreviewed with patient and spouse and understanding verbalized. Agrees to plan of care. 2 General Instructions [facility] Emergency Department [address] [place] [address] Phone #: ext- [phone] 08/21/2020 21:08 Patient: DOUG LANTIGUA Sex: F : 1995 Age: 24y ADDITIONAL INFORMATIONBladder Infection, Female (Adult)Urine normally doesn't have any germs (bacteria) in it. But bacteria can get into the urinary tract fromthe skin around the rectum. Or they can travel in the blood from other parts of the body. Once theyare in your urinary tract, they can cause infection in these areas: The urethra (urethritis) The bladder (cystitis) The kidneys (pyelonephritis)The most common place for an infection is in the bladder. This is called a bladder infection. This isone of the most common infections in women. Most bladder infections are easily treated. They arenot serious unless the infection spreads to the kidney.The terms bladder infection, UTI, and cystitis are often used to describe the same thing. But they arenot always the same. Cystitis is an inflammation of the bladder. The most common cause of cystitis isan infection.SymptomsThe infection causes inflammation in the urethra and bladder. This causes many of the symptoms.The most common symptoms of a bladder infection are: 3 General Instructions [facility] Emergency Department [address] [place] [address] Phone #: ext- [phone] 08/21/2020 21:08 Patient: DOUG LANTIGUA Sex: F : 1995 Age: 24y Pain or burning when urinating Having to urinate more often than normal Urgent need to urinate Only a small amount of urine comes out Blood in urine Belly (abdominal) discomfort. This is often in the lower belly above the pubic bone. Cloudy urine Strong- or bad-smelling urine Unable to urinate (urinary retention) Unable to hold urine in (urinary incontinence) Fever Loss of appetite Confusion (in older adults)CausesBladder infections are not contagious. You can't get one from someone else, from a toilet seat, orfrom sharing a bath.The most common cause of bladder infections is bacteria from the bowels. The bacteria get onto theskin around the opening of the urethra. From there, they can get into the urine. Then they travel up tothe bladder, causing inflammation and infection. This often happens because of: Wiping incorrectly after urinating. Always wipe from front to back. Bowel incontinence Procedures such as having a catheter put in Older age Not emptying your bladder. This can give bacteria a chance to grow in your urine. Fluid loss (dehydration) Constipation 4 General Instructions [facility] Emergency Department [address] [place] [address] Phone #: ext- [phone] 08/21/2020 21:08 Patient: DOUG LANTIGUA Sex: F : 1995 Age: 24y Having sex Using a diaphragm for controlTreatmentBladder infections are diagnosed by a urine test and urine culture. They are treated with antibiotics.They often clear up quickly without problems. Treatment helps prevent a more serious kidneyinfection.MedicinesMedicines can help in the treatment of a bladder infection: Take antibiotics until they are used up, even if you feel better. It's important to finish them to make sure the infection has cleared. You can use acetaminophen or ibuprofen for pain, fever, or discomfort, unless another medicine was prescribed. If you have long-term (chronic) liver or kidney disease, talk with your healthcare provider before using these medicines. Also talk with your provider if you've ever had a stomach ulcer or GI (gastrointestinal) bleeding, or are taking blood-thinner medicines. If you are given phenazopydridine to reduce burning with urination, it will make your urine a bright orange color. This can stain clothing.Care and preventionThese self-care steps can help prevent future infections: Drink plenty of fluids. This helps to prevent dehydration and flush out your bladder. Do this unless you must restrict fluids for other health reasons, or your healthcare provider told you not to. Clean yourself correctly after going to the bathroom. Wipe from front to back after using the toilet. This helps prevent the spread of bacteria. Urinate more often. Don't try to hold urine in for a long time. Wear loose-fitting clothes and cotton underwear. Don't wear tight-fitting pants. Improve your diet and prevent constipation. Eat more fresh fruits and vegetables, and fiber. Eat less junk foods and fatty foods. Don't have sex until your symptoms are gone. Don't have caffeine, alcohol, and spicy foods. These can irritate your bladder. 5 General Instructions [facility] Emergency Department [address] [place] [address] Phone #: ext- [phone] 08/21/2020 21:08 Patient: DOUG LANTIGUA Sex: F : 1995 Age: 24y Urinate right after you have sex to flush out your bladder. If you use control pills and have frequent bladder infections, discuss it with your healthcare provider.Follow-up careCall your healthcare provider if all symptoms are not gone after 3 days of treatment. This is especiallyimportant if you have repeat infections.If a culture was done, you will be told if your treatment needs to be changed. If directed, you cancall to find out the results.If X-rays were done, you will be told if the results will affect your treatment.Call [phone] if any of the following occur: Trouble breathing Hard to wake up or confusion Fainting (loss of consciousness) Fast heart rateWhen to get medical adviceCall your healthcare provider right away if any of these occur: Fever of 100.4F (38.0C) or higher, or as directed by your healthcare provider Symptoms are not better after 3 days of treatment Back or belly pain that gets worse Repeated vomiting, or unable to keep medicine down Weakness or dizziness Vaginal discharge Pain, redness, or swelling in the outer vaginal area (labia) 6930-1068 [employer]. [address] [place] [address]. All rights reserved. This information is not intended as asubstitute for professional medical care. Always follow your healthcare professional's instructions. 6 General Instructions [facility] Emergency Department [address] [place] [address] Phone #: ext- [phone] 08/21/2020 21:08 Patient: DOUG LANTIGUA Sex: F : 1995 Age: 24yYou have been given the following additional information:Bladder Infection, Female (Adult)(Electronically signed by Taye Pollack M.D. 08/22/2020 04:31) Name Value Range Interpretation Code Description Data Abiola rce(s) Supporting Document(s) ID Date Data Source [id number] 08/21/2020 09:22:00 PM EDT [facility] 1 Clinical Report - Nurses [facility] Emergency Department [address] [place] [address] Phone #: ext [phone] 08/21/2020 21:08 Patient: DOUG LANTIGUA Sex: F : 1995 Age: 24yTRIAGEArrived by private vehicle. Historian: patient. Accompanied by family.Acuity: LEVEL 3.Chief Complaint: ABDOMINAL PAIN.Alert. No acute distress.( Patient arrives c/o abdominal pain since Monday. Pt states pain has gotten worse. Pt states RLQ anddescribes pain as "my insides feel like they are on fire". 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 (IBU last dose couple hrs ago). --21:49 08/21/20 Casandra Bailey R.N.21:45 08/21/20. BP: 120/75. HR: 90. RR: 17. O2 saturation: 97%. Temp: 97.9 F. Pain level now 11/15.--21:49 08/21/20 Casandra Bailey R.N.Weight: 86.6 kg stated. Height/Length: 63 inches Per Patient. BMI: 33.8. --21:44 08/21/20 Casandra Bailey R.N.MedicationsBirth Control Pills. --21:48 08/21/20 Casandra Bailey R.N.AllergiesShellfish-derived Products. --21:48 08/21/20 Casandra Bailey R.N.HistoryPAST MEDICAL HX: Immunizations: up-to-date. Last normal menstrual period- August 10 2020. Last oralintake by patient was (6 pm).SOCIAL HX: Never smoker. Occasional alcohol use. No drug use. ( COVID screen negative). Shehas not traveled outside the [place]Infectious disease exposure: No infectious disease exposure. Patient is not a known carrier of tuberculosis,hepatitis, HIV, MRSA or VRE. Patient is not a known carrier of CRE.SELF HARM ASSESSMENT: Self harm assessment was performed. The patient answered "no" to thequestion(s) "Have you recently felt down, depressed, or hopeless?", "Do you have thoughts of harming orkilling yourself?", "Do you have a plan for harming or killing yourself?", "Have you recently had thoughtsabout harming or killing others?", "Do you have any dangerous items in your possession?", "Have younoticed less interest or pleasure in doing things?", "Are you here because you tried to hurt yourself?" and"Have you ever tried to hurt yourself before today?". 2 Clinical Report - Nurses [facility] Emergency Department [address] [place] [address], [place] [address] Phone #: ext- [phone] 08/21/2020 21:08 ------- Patient: DOUG LANTIGUA Sex: F : 1995 Age: 24y ABUSE ASSESSMENT: Abuse assessment. The patient had positive responses to the question(s) "Do you feel safe in your home?", "Are you afraid to go home?", "Has anyone hurt you or threatened to hurt you?", "Are you afraid of your partner?" and "Have children witnessed violence in the home?". Abuse denied. NUTRITIONAL RISK ASSESSMENT: The nutritional risk assessment revealed no deficiencies. FUNCTIONAL ASSESSMENT: Functional assessment: no impairments noted. LEARNING NEEDS ASSESSMENT: The learning needs assessment revealed no barriers. FALL RISK ASSESSMENT: Fall risk assessment completed. No risk factors identified. SKIN INTEGRITY ASSESSMENT: Skin integrity risk assessment completed. No skin integrity risk identified. --21:49 08/21/20 Casandra Bailey R.N. Interventions Identification band on patient. To treatment room. --21:49 08/21/20 Casandra Bailey R.N.PHYSICAL ASSESSMENTAmbulatory to room. Patient gowned.GENERAL / NEURO / PSYCH: Alert. Oriented X 4. Appears in no acute distress.HEENT: Mucous membranes are pink.RESPIRATORY: Respirations not labored. Breath sounds within normal limits.CVS: Normal sinus rhythm noted. Capillary refill less than 2 seconds.GI / : The patient has had nausea. Abdomen soft and nontender. Bowel sounds within normal limits.( RLQ pain since Monday, worse today. Denies v/d.).SKIN: Skin is warm and dry. --22:37 08/21/20 Casandra Bailey R.N.NURSING PROGRESS NOTES( Patient back to waiting room at this time.). --21:50 08/21/20 Casandra Bailey R.N. Patient gowned. Head of bed elevated. Reassurance given. Two patient ident ifiers checked. Call light placed in reach. Side rails up x 2. Bed placed in lowest position. Brakes of bed on. --22:38 08/21/20 Casandra Bailey R.N. late entry - 23:30 08/21/20. Reassurance given. Rounding: Pain: assessed pain level. Position: states comfortable. Personal care / toileting: denies toileting needs. Proximity of possessions / care items: call light within easy reach. Plug ins: assured IV pump plugged in; checked status of equipment in use; located all cords, tubes, and lines to prevent fall hazard. --02:22 08/22/20 Bianka Thao 23:50 08/21/2020 Site #1 started via IV in the left antecubital space with an 22g angiocath, with aseptic technique; two attempts. Blood drawn: rainbow set. Sent to the lab. Saline lock flushed with 10 mL saline. 3 Clinical Report - Nurses [facility] Emergency Department [address] [place] [address] Phone #: ext- [phone] 08/21/2020 21:08 Patient: DOUG LANTIGUA Sex: F : 1995 Age: 24y--23:50 08/21/20 Casandra Bailey R.N.23:50 08/21/2020 Zofran (Ondansetron HCl) IVP 4 mg given via site #1. Allergies verified and confirmed 5rights. IV patency established. IV site checked: no pain, redness, or swelling. IV flushed thoroughly pre-and post-medication administration. IVP given by RN. Information reviewed with patient. Verbalizesunderstanding. --23:50 08/21/20 Casandra Bailey R.N.23:51 08/21/2020 Started 20 mg of Pepcid IVPB in bag #1 50 mL; at 100 mL/hr over 30 minute(s) via site#1. via IV pump. Allergies verified and confirmed 5 rights. IV patency established. IV site checked: no pain,redness, or swelling. IV flushed thoroughly pre- and post-medication administration. Information reviewedwith patient. Verbalizes understanding. --23:51 08/21/20 Casandra Bailey R.N.23:51 08/21/2020 Started bag #1 1000 mL IV Fluids Sodium Chloride; at 1000 mL/hr over 1 hour(s) via site#1 via IV pump. Allergies verified and confirmed 5 rights. IV patency established. IV site checked: no pain,redness, or swelling. IV flushed thoroughly pre- and post-medication administration. Information reviewedwith patient. Verbalizes understanding. --23:51 08/21/20 Casandra Bailey R.N.00:24 08/22/2020 Pepcid IVPB via IV site #1 Discontinued: completed. Total amount infused: 50 mL. IVpatency established. IV site checked: no pain, redness, or swelling. IV flushed thoroughly. --00:39 08/22/20Bianka Thao( Patient refusing CT scan. Educated on reasons it was ordered and risk of refusing. Patient statesunderstanding and continues to refuse due to "not wanting to wait for it to come back".). --00:44 08/22/20Devora Thaoate entry - 00:30 08/22/20. Reassurance given.Rounding: Pain: assessed pain level. Position: states comfortable. Personal care / toileting: denies toiletingneeds. Proximity of possessions / care items: call light within easy reach. Plug ins: assured IV pumpplugged in; checked status of equipment in use; located all cords, tubes, and lines to prevent fall hazard.--02:23 08/22/20 Bianka Thao00:58 08/22/2020 Site #2 started via IV in the right forearm with an 20g angiocath, with aseptic techniqueand good blood return; two attempts. Saline lock flushed with saline. --00:58 08/22/20 Isaura Thao entry - 01:30 08/22/20. Reassurance given.Rounding: Pain: assessed pain level. Position: states comfortable. Personal care / toileting: denies toiletingneeds. Proximity of possessions / care items: call light within easy reach. Plug ins: assured IV pumpplugged in; checked status of equipment in use; located all cords, tubes, and lines to prevent fall hazard.--02:23 08/22/20 Bianka Thao02:03 08/22/2020 IV Fluids Sodium Chloride via IV site #1 Discontinued: completed. Total amount infused:1000 mL. IV patency established. IV site checked: no pain, redness, or swelling. IV flushed thoroughly. 4 Clinical Report - Nurses [facility] Emergency Department [address] [place] [address] Phone #: ext- [phone] 08/21/2020 21:08 Patient: DOUG LANTIGUA Sex: F : 1995 Age: 24y --02:03 08/22/20 Casandra Bailey R.N. 03:12 08/22/2020 Site #1 removed. Catheter intact. Bandaid applied (Patient demanding removal, states it's uncomfortable. Patient agrees to keep site #2 [address] until discharge.). --03:12 08/22/20 Bianka Thao 04:26 08/22/2020 Macrobid (Nitrofurantoin Monohyd Macro) PO 100 mg given. Allergies verified and confirmed 5 rights. Information reviewed with patient. Verbalizes understanding. --04:26 08/22/20 Casandra Bailey R.N. 04:08/22/2020 Pyridium (Phenazopyridine HCl) PO 100 mg given. Allergies verified and confirmed 5 rights. Information reviewed with patient. Verbalizes understanding. --04:08/22/20 Casandra Bailey R.N.DISPOSITION / DISCHARGE 04:08/22/2020 Site #2 removed upon discharge. Bandage applied. --04:08/22/20 Casandra Bailey R.N. Condition at departure: stable. No learning barriers present. Discharge instructions provided and reviewed with the patient. Reviewed warnings. Reviewed medication(s) side effects, precautions, dosing and course information. Prescription(s) given to the patient and sent electronically to pharmacy. Medication(s) for home use given to the patient per protocol. Treatments reviewed. Reviewed referral to family practice for followup. Patient verbalized understanding. Written instructions provided in Croatian. The patient was discharged home and accompanied by spouse. She left ambulatory and via private vehicle. Spouse driving. --04:08/22/20 Casandra Bailey R.N. 04:08/22/20. BP: unable to obtain. HR: unable to obtain. RR: unable to obtain. O2 saturation: unable to obtain. Temp: unable to obtain. Pain level now unable to obtain. Additional comments: Pt refused d/c VS. --04:08/22/20 Casandra Bailey R.N.Locked/Released at 08/22/2020 04:27 by Casandra Bailey R.N. Name Value Range Interpretation Code Description Data Abiola rce(s) Supporting Document(s) ID Date Data Source [id number] 0001 08/21/2020 09:22:00 PM EDT [facility] 1 Clinical Report - Physicians/Mid Levels [facility] Emergency Department [address] [place] [address] Phone #: ext- [phone] 08/21/2020 21:08 Patient: DOUG LANTIGUA Sex: F : 1995 Age: 24y Time Seen: 23:15 08/21/2020; initial patient contact. Arrived- By private vehicle. Historian- patient. Disposition decision: 04:18 08/22/2020.HISTORY OF PRESENT ILLNESS Chief Complaint: ABDOMINAL PAIN. This started 4 days ago and is still present and worsening. It was gradual in onset and has been constant. It is described as "pain". No radiation. It is described as located in the right lower quadrant and left lower quadrant and in the lower abdomen. At its maximum, severity described as severe and 10 / 10. When seen in the E.D., severity described as severe and 8 / 10. Modifying factors- worsened by movement and walking. Relieved by rest. Not relieved by anything. The patient has had nausea. No loss of appetite, vomiting or diarrhea. No recent travel. Similar symptoms previously. None. Recent medical care: Not recently seen/assessed.REVIEW OF SYSTEMSLast normal menstrual period- 7-5-21. 1. Para 1. No constipation, black stools, hematemesis,difficulty with urination or pain with urination. No urinary frequency, bloody stools, fever, headache or sorethroat. No blurred vision, chest pain, difficulty breathing, cough or joint pain. No skin rash, chills or backpain. The patient has not had weight loss. All other systems reviewed and are negative.PAST HISTORYSee nurses notes. Medications: Control Pills. Allergies: Shellfish-derived Products.SOCIAL HISTORYNever smoker. Occasional alcohol use. No drug use.ADDITIONAL NOTESThe nursing notes have been reviewed with agreement regarding the chief complaint, HPI, ROS, PMH andpatient medications and allergies.PHYSICAL EXAMVital Signs: 08/21/2020 21:45 BP: 120/75. MAP: 90. HR: 90. RR: 17. O2 saturation: 97%. Temp: 97.9 F.Have been reviewed. Oxygen saturation normal. 2 Clinical Report - Physicians/Mid Levels [facility] Emergency Department [address] [place] [address] Phone #: ext- [phone] 08/21/2020 21:08 [id number] Sex[facility] F : 1995 Age: 24y Appearance: Alert. Oriented X3. No acute distress. Eyes: Pupils equal, round and reactive to light. Eyes normal inspection. ENT: Nose normal. Pharynx normal. Neck: Normal inspection. Neck supple. CVS: Normal heart rate and rhythm. Heart sounds normal. Pulses normal. Respiratory: No respiratory distress. Painless inspiration. Breath sounds normal. Chest nontender. Abdomen: Soft. Mild tenderness in the right lower quadrant. No guarding, rebound tenderness or Burr's sign present. Bowel sounds normal. No organomegaly. No mass. Femoral pulses equal. Mildly obese. Back: Normal inspection. No CVA tenderness. Skin: Skin warm and dry. Normal skin color. No rash. Normal skin turgor. Extremities: Extremities exhibit normal ROM. No lower extremity edema. Neuro: Oriented X 3. No motor deficit. No sensory deficit.LABS, X-RAYS, AND EKGAbdominal CT: REPORT SUBMISSION DATE: Aug 22, 2020 4:08:46 AM EDT NAME: DOUG LANTIGUA STUDY INITIATED: Aug 22, 2020 1:52:18 AM EDT STUDY RECEIVED: Aug 22, 2020 2:09:34 AM EDT GENDER: F MODALITY TYPE: CT\\SR : 89 DESCRIPTION: CT ABD PELVIS W/ IV ONLY INSTITUTION: [facility] ORDERING PHYSICIAN: Taye Pollack PATIENT HISTORY: ABD/PEL (DICOM Hx) EXAM: CT Abdomen and Pelvis with IV contrast CLINICAL HISTORY: CT ABD PELVIS W/IV CONTRAST DX: RLQ PAIN X 3DAYS. PT RECEIVED 75 ML ISOVUE 370 EXP 06/28 [id number] BUN 8 CREATINE 0.6 GFR>60. ACTUAL DOSE 683.5mGY*cm Patient has negative beta. Patient shielded. Verification of 2 patient identifiers performed. Time Out performed. Correct patient with 2 identifiers, type and amount of contrast used, correct body part and side all verified prior to examination. TECHNIQUE: Axial computed tomography images of the abdomen and pelvis with intravenous contrast. / All CT scans at this facility use dose modulation, iterative reconstruction, and/or weight-based dosing when appropriate to reduce radiation dose to as low as reasonably achievable. CONTRAST: with intravenous contrast. With; PT RECEIVED 75 ML ISOVUE 370 EXP 06/28 3 Clinical Report - Physicians/Mid [facility] Emergency Department [address] [place] [address] Phone #: ext- [phone] 08/21/2020 21:08 Patient: DOUG LANTIGUA Sex: F : 1995 Age: 24yCOMPARISON: None provided.FINDINGS:LUNG BASES: The lung bases appear clear. No pleural effusions are seen.LIVER: Unremarkable.GALLBLADDER AND BILE DUCTS: The gallbladder appears within normal limits. No radioopaquegallstones are seen. No biliary ductal dilatation is evident.PANCREAS: Unremarkable.SPLEEN: Unremarkable.ADRENAL GLANDS: Unremarkable.KIDNEYS, URETERS, AND BLADDER: The kidneys appear within normal limits. There is nohydronephrosis or hydroureter. No urinary calculi are seen.STOMACH AND BOWEL: Unremarkable appearance of the stomach and bowel. No evidence of bowelobstruction. No evidence suggesting enteritis or colitis.APPENDIX: Normal appendix.PERITONEUM: No free fluid. No free air.LYMPH NODES: No lymphadenopathy is evident.REPRODUCTIVE: Unremarkable as visualized.VASCULATURE: No evidence of abdominal aortic aneurysm.BONES: No aggressive appearing osseous lesion. No acute osseous pathology evident.IMPRESSION:No acute intra-abdominal or pelvic abnormality.Electronically signed on Aug 22, 2020 4:08:46 AM EDT by:Nawaf Mas, [place] [employer]. Study type: abdomen and pelvis. Abdominal CT performedwith IV contrast. The study was interpreted by the radiologist.Laboratory Tests: Laboratory tests have been ordered, with results reviewed and considered in the 4 Clinical Report - Physicians/Mid [facility] Emergency Department [address] [place] [address] Phone #: ext- [phone] 08/21/2020 21:08 Patient: DOUG LANTIGUA Sex: F : 1995 Age: 24ymedical decision making process.CT Abd PEL W/ IV Contrast Only: (LEV: 08/22/2020 00:57) ( MsgRcvd 08/22/2020 04:09) Finalresults Exam CT ABD //T// PELVIS W/ [place] [address] ---------NAME--------- NUMBER SEX AGE ADMIT DISC. XRAY# F/C TYPE GRZEGORZ CAMACHO [id number] F 24 08/21/20 [id number] SB2 E/R DATE OF : 1995 M/R# [id number] #: [id number] TR-04 LOCATION: EMERGENCY DEPT TRANSCRIBED: 08/22/20 4:[address] ABD //T// PELVIS W/ IV ONLY [id number] COMPLETED:08/22/20 3:05 [id number] [id number] Reason(s): RLQ pain x 3 days PHYSICIAN: CURTIS DONIS R A D I O L O G Y R E P O R T PATIENT HISTORY: CT ABD //T// PELVIS W/IV CONTRAST DX: RLQ PAIN X 3DAYS. PT RECEIVED 75 ML ISOVUE 370 EXP 06/28 [id number] BUN 8 CREATINE 0.6 GFR>60. ACTUAL DOSE 683.5mGY*cm Patient has negative beta. Patient shielded. Verification of 2 patient identifiers performed. Time Out performed. Correct patient with 2 identifiers, type and amount of contrast used, correct body part and side all verified prior to examination. / ABD/PEL (DICOM Hx) EXAM: CT Abdomen and Pelvis with IV contrast CLINICAL HISTORY:CT ABD //T// PELVIS W/IV CONTRAST DX: RLQ PAIN X 3DAYS. PT RECEIVED 75 ML ISOVUE 370 EXP 06/28 [id number] BUN 8 CREATINE 0.6 GFR>60. ACTUAL DOSE 683.5mGY*cm Patient has negative beta. Patient shielded. Verification of 2 patient identifiers performed. Time Out performed. Correct patient with 2 identifiers, type and amount of contrast used, correct body part and side all verified prior to examination. TECHNIQUE: Axial computed tomography images of the abdomen and pelvis with intravenous contrast. / All CT scans at this facility use dose modulation, iterative reconstruction, and/or weight-based dosing when appropriate to reduce radiation dose to as low as reasonably achievable. CONTRAST:with intravenous contrast. With; PT RECEIVED 75 ML ISOVUE 370 EXP 06/28 [id number] COMPARISON:None provided. FINDINGS: LUNG BASES: The lung bases appear clear. No pleural effusions are seen. LIVER: Unremarkable. GALLBLADDER AND BILE DUCTS: The gallbladder appears within normal limits. No radioopaque gallstones are seen. No biliary ductal dilatation is evident. PANCREAS: Unremarkable. 5 Clinical Report - Physicians/Mid Levels [facility] Emergency Department [address] [place] [address] Phone #: ext- [phone] 08/21/2020 21:08 Patient: DOUG LANTIGUA Sex: F : 1995 Age: 24y SPLEEN: Unremarkable. ADRENAL GLANDS: Unremarkable. KIDNEYS, URETERS, AND BLADDER: The kidneys appear within normal limits. There is no hydronephrosis or hydroureter. No urinary calculi are seen. STOMACH AND BOWEL: Unremarkable appearance of the stomach and bowel. No evidence of bowel obstruction. No evid ence suggesting enteritis or colitis. APPENDIX:Normal appendix. PERITONEUM: No free fluid. No free air. LYMPH NODES: No lymphadenopathy is evident. REPRODUCTIVE: Unremarkable as visualized. VASCULATURE: No evidence of abdominal aortic aneurysm. BONES: No aggressive appearing osseous lesion. No acute osseous pathology evident. IMPRESSION: No acute intra-abdominal or pelvic abnormality. While performing the above CT examination, radiation dose reduction was accomplished utilizing automated exposure control, adjusting of the mA and kV based on the patient's body size and/or the use of imperative reconstructive techniques. Electronically Signed By: Ramin Quigley MD , Radiologist Date/Time: 08/22/20 04:08CT Abd PEL W/ IV Contrast Only: (LEV: 08/22/2020 00:39) ( MsgRcvd 08/22/2020 00:43) CanceledReason(s): rlq pain x 2 daysReason(s): rlq pain x 2 daysTRANSPORTATION: WC IV? IV?(Yes) O2? Oxygen?(No) RoCBC w Diff: (LEV: 08/21/2020 23:41) ( MsgRcvd 08/21/2020 23:59) Final results Test Result Flag Units (Reference) CBC W/AUTOMATED DIFF COMPLETE BLOOD COUNT WBC 6.8 10/uL (4.2 - 11.0) RBC 4.46 10/uL (4.20 - 5.40) HEMOGLOBIN 12.9 g/dL (12.0 - 16.0) HEMATOCRIT 39.0 % (37.0 - 47.0) MCV 87.4 fL (81.0 - 101) MCH 28.9 pg (27.0 - 34.0) MCHC 33.1 g/dL (31.0 - 36.0) RDW 13.2 % (11.5 - 14.5) PLATELETS 303 10/uL (150 - 450) MPV 9.5 fL (7.4 - 10.4) 6 Clinical Report - Physicians/Mid Levels [facility] Emergency Department [address] [place] [address] Phone #: ext- [phone] 08/21/2020 21:08 Patient: DOUG LANTIGUA Sex: F : 1995 Age: 24y NEUT 54.1 % (37.0 - 80.0) LYMPH 35.5 % (25.0 - 40.0) MONO 9.0 H % (3.0 - 8.0) EOS 1.0 % (0.0 - 7.0) BASO 0.3 % (0.0 - 2.5) %IG 0.1 H % (0.0 - 0.0) %NRBC 0.0 % (0.0 - 0.0) #NEUT 3.68 10/uL (2.00 - 6.90) #LYMPH 2.42 10/uL (0.60 - 3.40) #MONO 0.61 10/uL (0.00 - 0.90) #EOS 0.07 10/uL (0.00 - 0.70) #BASO 0.02 10/uL (0.00 - 0.20) #IG 0.01 10/uL (0.00 - 0.10) #NRBC 0.00 10/uL (0.00 - 0.00) MANUAL DIFF NOT INDICATED RBC MORPH NOT INDICATEDCMP: (LEV: 08/21/2020 23:41) ( MsgRcvd 08/22/2020 0 0:14) Final results Test Result Flag Units (Reference) COMPREHENSIVE METABOLIC PANEL COMPREHENSIVE METABOLIC PANEL SODIUM 138 mEq/L (134 - 153) POTASSIUM 3.7 mEq/L (3.6 - 5.0) CHLORIDE 103 mEq/L (98 - 107) CO2 24 MEQ/L (22 - 30) GLUCOSE 107 H MG/DL (70 - 99) BUN 8 MG/DL (7 - 21) CREATININE 0.6 L MG/DL (0.7 - 1.5) BUN/CREAT 13 (8 - 27) TOTAL PROTEIN 7.0 G/DL (6.3 - 8.2) ALBUMIN 3.9 G/DL (3.9 - 5.0) GLOBULIN 3.1 GM/DL (2.4 - 3.2) A/G RATIO 1.3 (0.8 - 2.0) CALCIUM 9.4 MG/DL (8.4 - 10.2) TOTAL BILI <0.7 MG/DL (0.2 - 1.3) ALKALINE PHOS 96 U/L (38 - 126) SGOT/AST 20 U/L (5 - 40) SGPT/ALT 28 U/L (7 - 56) ANION GAP 11.0 mmol/L (8.0 - 16.0) AGE 24 yrs NON- AA GFR >60 mL/min AFR AMER GFR >60 mL/min Male GFR Interprentation 20-49 yrs >60 mL/min Oudjfw56-13 yrs >56 mL/min Normal 60- 69 yrs >49 mL/min Normal 70-79yrs>42 mL/min Normal 80 and above >35 mL/min Normal Female GFRInterpretation 20-39 yrs >60 mL/min Normal 40-49 yrs >58 mL/minNormal 50-59 yrs >51 mL/min Normal 60-69 yrs >45 mL/min [place]04-28 yrs >39 mL/min Normal 80 and above >32 mL/min NormalLipase: (LEV: 08/21/2020 23:41) ( MsgRcvd 08/22/2020 00:12) Final results Test Result Flag Units (Reference) LIPASE 41 U/L (13 - 60)Urinalysis: (LEV: 08/21/2020 23:20) ( MsgRcvd 08/21/2020 23:36) Final results Test Result Flag Units (Reference) URINALYSIS URINALYSIS 7 Clinical Report - Physicians/Mid Levels [facility] Emergency Department [address] [place] [address] Phone #: ext- [phone] 08/21/2020 21:08 Patient: DOUG LANTIGUA Sex: F : 1995 Age: 24y SOURCE R COLOR yellow (NORMAL: Yello CLARITY hazy (NORMAL: Clear SPEC GRAVITY 1.010 (1.001 - 1.030 pH 7 (5 - 9) GLUCOSE NORM (NORMAL: Negat BILIRUBIN NEG (NORMAL: Negat KETONE NEG (NORMAL: Negat PROTEIN NEG (NORMAL: Negat NITRITE NEG (NORMAL: Negat BLOOD 150 A (NORMAL: Negat LEUK EST 25 (NORMAL: Negat UROBILINOGEN 1 (less than 1.0 MICROSCOPIC See Below WBC 1 - 3 (NORMAL: NONE RBC 0 - 1 (NORMAL: NONE EPITHELIAL MODERATE A (NORMAL: NONE BACTERIA Trace (NORMAL: NONE MUCOUS 2+ A (NORMAL: NONE Lactic Acid: (LEV: 08/21/2020 23:41) ( MsgRcvd 08/21/2020 23:59) Final results Test Result Flag Units (Ref erence) LACTIC ACID 1.7 MMOL/L (0.2 - 2.2) Beta-HCG, Qual Serum: (LEV: 08/21/2020 23:41) ( MsgRcvd 08/22/2020 00:14) Final results Test Result Flag Units (Reference) HCG SERUM QUAL NEGATIVE (NORMAL: NEGAT HCG SERUM QL REENTER NEGATIVE (NORMAL: NEGAT { KIT LOT # [id number] ){ KIT EXP DATE 02-05-22 ){ PROCEDURAL CONTROL VALID ).PROGRESS AND PROCEDURESCourse of Care: 00:40 08/22/20. workup all in and reviewed, WBC nml, lactic nml, but UA results c/w UTI,will do CTAP to r/o appy and then treat for UTI if CT neg., urine culture ordered 04:15 08/22/20. CTAP w IV results nml, no appendicitis, pt has probable UTI, will treat accordingly; d/c instructions given, pt understands and agrees. Patient and spouse counseled in person regarding the patient's stable condition, test results, diagnosis and need for follow-up. Patient and spouse agrees with plan of care. Disposition: Condition: good and stable. Discharge decision based on the following: patient's condition is stable; patient's c ondition is improved; patient is ambulatory; patient is active; patient drinking fluids; patient eating; patient's pain is controlled; patient's exam is improved; no seriously abnormal test results; improving condition on multiple repeat evaluations; social support is good; transportation is available; follow-up is available; clinical impression is consistent with outpatient treatment. 8 Clinical Report - Physicians/Mid Levels [facility] Emergency Department [address] [place] [address] Phone #: ext- [phone] 08/21/2020 21:08 Patient: DOUG LANTIGUA Sex: F : 1995 Age: 24yCLINICAL IMPRESSION Acute urinary tract infection with cystitis. No hematuria.INSTRUCTIONS Drink plenty of fluids. Avoid alcohol. Avoid fatty, fried/greasy, lactose-containing (such as milk, cheese and ice cream), salty and spicy foods. No alcohol. Warnings: Further evaluation is necessary. It is very important to follow up with a healthcare provider. GENERAL WARNINGS: Return or contact your physician immediately if your condition worsens or changes unexpectedly, if not improving as expected, or if other problems arise. SPECIFICALLY, return if you develop pain in the abdomen, pelvis, back or shoulder, fever, vomiting, the inability to keep fluids down, blood in vomitus, blood in diarrhea, fainting or lightheadedness. Your Current Medications: Your current home medications have been reviewed. CONTINUE TAKING THE FOLLOWING MEDICATIONS: Control Pills*. Prescription Medications: Macrobid 100 mg capsule Take 1 capsule twice a day for 5 days -- Dispense 10 capsule. Refills: 0. Substitution permitted. [facility] [phone] ; [place] [address]. . Pyridium 100 mg tablet Take 1 tablet three times a day for 3 days -- Dispense 9 tablet. Refills: 0. Substitution permitted. [facility] [phone] ; [place] [address]. . Follow-up: Return to the emergency department as needed. Follow up with your healthcare provider in three days even if well. Call for an appointment. Reason for referral: evaluation and treatment. Summary of care provided to patient via paper. Understanding of the discharge instructions verbalized by patient. Expected course of illness, discharge instructions, activity level, diet, prescriptions x2, follow-up appointment and risks and benefits of treatment reviewed with patient and spouse and understanding verbalized. Agrees to plan of care. 9 Clinical Report - Physicians/Mid Levels [facility] Emergency Department [address] [place] [address] Phone #: ext- [phone] 08/21/2020 21:08 Patient: DOUG LANTIGUA Sex: F : 1995 Age: 24y(Electronically signed by Taye Pollack M.D. 08/22/2020 04:31) Name Value Range Interpretation Code Description Data Abiola rce(s) Supporting Document(s) ID Date Data Source [id number] 08/22/2020 04:08:00 [place] [address] ---------NAME--------- NUMBER SEX AGE ADMIT DISC. XRAY# F/C TYPE EDYL DOUG [id number] F 24 08/21/20 [id number] SB2 E/R DATE OF : 1995 M/R# [id number] #: [id number] TR-04 LOCATION: EMERGENCY DEPT TRANSCRIBED: 08/22/20 4:[address] ABD //T// PELVIS W/ IV ONLY [id number] COMPLETED:08/22/20 3:05 W [id number] Reason(s): RLQ pain x 3 days PHYSICIAN: CURTIS DONIS==== R A D I O L O G Y R E P O R T ===PATIENT HISTORY:CT ABD //T// PELVIS W/IV CONTRASTDX: RLQ PAIN X 3DAYS. PT RECEIVED 75 ML ISOVUE 370 EXP 06/28 [id number] BUN 8CREATINE 0.6 GFR>60. ACTUAL DOSE 683.5mGY*cmPatient has negative beta. Patient shielded. Verification of 2 patientidentifiers performed.Time Out performed. Correct patient with 2 identifiers, type and amount ofcontrast used, correct body part and side all verified prior to examination. /ABD/PEL (DICOM Hx)EXAM: CT Abdomen and Pelvis with IV contrastCLINICAL HISTORY:CT ABD //T// PELVIS W/IV CONTRAST DX: RLQ PAIN X 3DAYS. PT [id number] ML ISOVUE 370 EXP 06/28 [id number] BUN 8 CREATINE 0.6 GFR>60. ACTUAL SIWG081.5mGY*cm Patient has negative beta. Patient shielded. Verification of 2patient identifiers performed. Time Out performed. Correct patient with 2identifiers, type and amount of contrast used, correct body part and side allverified prior to examination.TECHNIQUE: Axial computed tomography images of the abdomen and pelvis withintravenous contrast. / All CT scans at this facility use dose modulation,iterative reconstruction, and/or weight-based dosing when appropriate to reduceradiation dose to as low as reasonably achievable.CONTRAST:with intravenous contrast. With; PT RECEIVED 75 ML ISOVUE 370 EXP 06/[id number]:None provided.FINDINGS:LUNG BASES: The lung bases appear clear. No pleural effusions are seen.LIVER: Unremarkable.GALLBLADDER AND BILE DUCTS: The gallbladder appears within normal limits. Noradioopaque gallstones are seen. No biliary ductal dilatation is evident.PANCREAS: Unremarkable.SPLEEN: Unremarkable.ADRENAL GLANDS: Unremarkable.KIDNEYS, URETERS, AND BLADDER: The kidneys appear within normal limits. There isno hydronephrosis or hydroureter. No urinary calculi are seen.STOMACH AND BOWEL: Unremarkable appearance of the stomach and bowel. No evidenceof bowel obstruction. No evidence suggesting enteritis or colitis.APPENDIX:Normal appendix.PERITONEUM: No free fluid. No free air.LYMPH NODES: No lymphadenopathy is evident.REPRODUCTIVE: Unremarkable as visualized.VASCULATURE: No evidence of abdominal aortic aneurysm.BONES: No aggressive appearing osseous lesion. No acute osseous pathologyevident.IMPRESSION:No acute intra-abdominal or pelvic abnormality.While performing the above CT examination, radiation dose reduction wasaccomplished utilizing automated exposure control, adjusting of the mA and kVbased on the patient's body size and/or the use of imperative reconstructivetechniques.Electronically Signed By:Ramin Quigley MD , RadiologistDate/Time: 08/22/20 04:08 Name Value Range Interpretation Code Description Data Abiola rce(s) Supporting Document(s) ID Date Data Source [id number] 08/22/2020 12:14:00 AM EDT [facility] Name Value Range Interpretation Code Description Data [facility] rce(s) Supporting Document(s) COMPREHENSIVE METABOLIC PANEL [facility] COMPREHENSIVE METABOLIC PANEL Sodium [Moles/volume] in Serum or Plasma 138 mEq/L 134 - 153 [facility] Potassium [Moles/volume] in Serum or Plasma 3.7 mEq/L 3.6 - 5.0 [facility] Chloride [Moles/volume] in Serum or Plasma 103 mEq/L 98 - 107 [facility] Carbon dioxide, total [Moles/volume] in Serum or Plasma 24 MEQ/L 22 - 30 [facility] Glucose [Mass/volume] in Serum or Plasma 107 MG/DL 70 - 99 H [facility] BUN 8 MG/DL 7 - 21 [facility] Creatinine [Mass/volume] in Serum or Plasma 0.6 MG/DL 0.7 - 1.5 L [facility] BUN/CREAT 13 8 - 27 [facility] Protein [Mass/volume] in Serum or Plasma 7.0 G/DL 6.3 - 8.2 [facility] Albumin [Mass/volume] in Serum or Plasma 3.9 G/DL 3.9 - 5.0 [facility] Globulin [Mass/volume] in Serum by calculation 3.1 GM/DL 2.4 - 3.2 [facility] A/G RATIO 1.3 0.8 - 2.0 [facility] Calcium [Mass/volume] in Serum or Plasma 9.4 MG/DL 8.4 - 10.2 [facility] Bilirubin.total [Mass/volume] in Serum or Plasma <0.7 MG/DL 0.2 - 1.3 [facility] Alkaline phosphatase [Enzymatic activity/volume] in Serum or Plasma 96 U/L 38 - 126 [facility] Aspartate aminotransferase [Enzymatic activity/volume] in Serum or Plasma 20 U/L 5 - 40 [facility] Alanine aminotransferase [Enzymatic activity/volume] in Seru m or Plasma 28 U/L 7 - 56 [facility] Anion gap 3 in Serum or Plasma 11.0 mmol/L 8.0 - 16.0 [facility] AGE 24 yrs [facility] al NON-AA GFR >60 mL/min [facility] AFR AMER GFR >60 mL/min [facility] Male GFR In terprentation 20-49 yrs >60 mL/min Normal 50-59 yrs >56 mL/min Normal 60-69 yrs >49 mL/min Normal 70-79yrs >42 mL/min Normal 80 and above >35 mL/min Normal Female GFR Interpretation 20-39 yrs >60 mL/min Normal 40-49 yrs >58 mL/min Normal 50-59 yrs >51 mL/min Normal 60-69 yrs >45 mL/min Normal 70-79 yrs >39 mL/min Normal 80 and above >32 mL/min Normal ID Date Data Source [id number] 08/22/2020 12:14:00 AM EDT [facility] Name Value Range Interpretation Code Description Data Abiola rce(s) Supporting Document(s) HCG SERUM QUAL NEGATIVE NORMAL: NEGATIVE [facility] HCG SERUM QL REENTER NEGATIVE NORMAL: NEGATIVE [facility] { KIT LOT # [id number] ){ KIT EXP DATE 02-05-22 ){ PROCEDURAL CONTROL VALID ) ID Date Data Source [id number] 08/22/2020 12:12:[address] [facility] Value Range Interpretation Code Description Data Abiola rce(s) Supporting Document(s) Lipase [Enzymatic activity/volume] in Serum or Plasma 41 U/L 13 - 60 [facility] ID Date Data Source [id number] 08/21/2020 11:59:00 PM EDT [facility] Name Value Range Interpretation Code Description Data Abiola rce(s) Supporting Document(s) Lactate [Moles/volume] in Serum or Plasma 1.7 MMOL/L 0.2 - 2.2 [facility] ID Date Data Source [id number] 08/21/2020 11:59:[address] [facility] Value Range Interpretation Code Description Data Abiola rce(s) Supporting Document(s) CBC W/AUTOMATED DIFF [facility] COMPLETE BLOOD COUNT Leukocytes [#/volume] in Blood by Automated count 6.8 10^3/uL 4.2 - 1 1.0 [facility] Erythrocytes [#/volume] in Blood by Automated count 4.46 10^6/uL 4. 20 - 5.40 [facility] Hemoglobin [Mass/volume] in Blood 12.9 g/dL 12.0 - 16.0 [facility] Hematocrit [Volume Fraction] of Blood by Automated count 39.0 % 3 7.0 - 47.0 [facility] Erythrocyte mean corpuscular volume [Entitic volume] by Auto mated count 87.4 fL 81.0 - 101 [facility] Erythrocyte mean corpuscular hemoglobin [Entitic mass] by Automated count 28.9 pg 27.0 - 34.0 [facility] Erythrocyte mean corpuscular hemoglobin concentration [Mass/volume] by Automated count 33.1 g/dL 31.0 - 36.0 [facility] Erythrocyte distribution width [Ratio] by Automated count 13.2 % 11.5 - 14.5 [facility] Platelets [#/volume] in Blood by Automated count 303 10^3/uL 150 - 45 0 [facility] Platelet mean volume [Entitic volume] in Blood by Automated count 9.5 fL 7.4 - 10.4 [facility] Neutrophils/100 leukocytes in Blood by Automated count 54.1 % 37. 0 - 80.0 [facility] Lymphocytes/100 leukocytes in Blood by Manual count 35.5 % 25.0 - 40.0 [facility] Monocytes/100 leukocytes in Blood by Automated count 9.0 % 3.0 - 8.0 H [facility] Eosinophils/100 leukocytes in Blood by Automated count 1.0 % 0.0 - 7.0 [facility] Basophils/100 leukocytes in Blood by Automated count 0.3 % 0.0 - 2.5 [facility] %IG 0.1 % 0.0 - 0.0 [facility]NRBC 0.0 % 0.0 - 0.0 [facility] al Neutrophils [#/volume] in Blood by Automated count 3.68 10^3/uL 2.00 - 6.90 [facility] Lymphocytes [#/volume] in Blood by Automated count 2.42 10^3/uL 0.60 - 3.40 [facility] Monocytes [#/volume] in Blood by Automated count 0.61 10^3/uL 0.00 - 0.90 [facility] Eosinophils [#/volume] in Blood by Automated count 0.07 10^3/uL 0.00 - 0.70 [facility] Basophils [#/volume] in Blood by Automated count 0.02 10^3/uL 0.00 - 0.20 [facility] #IG 0.01 10^3/uL 0.00 - 0.10 [facility] #NRBC 0.00 10^3/uL 0.00 - 0.00 [facility] MANUAL DIFF NOT INDICATED [facility] RBC MORPH NOT INDICATED [facility] ID Date Data Source [id number] 08/25/2020 02:00:00 PM EDT [facility] Name Value Range Interpretation Code Description Data Abiola rce(s) Supporting Document(s) CULTURE URINE [facility] _CULTURE URINE_$$[id number]$$[id number]$$[id number]$$[id number]$$[id number]$$[id number]$$[id number]$$[id number]$$[id number]$$ [id number]$$[id number]$$[id number]$$[id number]$$[id number]$$[id number]$$[id number]$$[id number]$$[id number]$$[id number]$$ [id number]$$[id number]$$[id number]$$[id number]$$[id number]$$[id number]$$[id number]$$[id number] -- Continued on next page --Patient: GRZEGORZ CAMACHO Order: [id number] Page 2Culture: CULTURE URINE Status: Final ====$$[id number]$$[id number] DATE/TIME: 08/25/2020 11:06Culture: CULTURE URINE Status: FinalUrine Culture,Comprehensive: [id number] urogenital flora10,000-25,000 colony forming units per mLP1 Test performed by: Jim NAYLOR #: [id number] [address] [place] [address] [id number] [facility] [address]Znoxsgy Director : Darryn Handley MD NPI #:Real Estate Broker Associate : [email or web address] REF ID Date Data Source [id number] 08/21/2020 11:35:00 PM EDT [facility] Name Value Range Interpretation Code Description Data Abiola rce(s) Supporting Document(s) [facility] COLOR yellow NORMAL: Yellow [facility] CLARITY hazy NORMAL: Clear [facility] Specific gravity of Urine by Test strip 1.010 1.001 - 1.030 [facility] pH 7 5 - 9 [facility] Glucose [Mass/volume] in Urine by Test strip NORM NORMAL: Negat [facility] Bilirubin.total [Presence] in Urine by Test strip NEG NORMAL: Negative [facility] Ketones [Presence] in Urine by Test strip NEG NORMAL: Negative [facility] Protein [Mass/volume] in Urine by Test strip NEG [facility] Nitrite [Presence] in Urine by Test strip NEG NORMAL: Negative [facility] BLOOD 150 NORMAL: Negative A [facility] LEUK EST 25 NORMAL: Negative [facility] Urobilinogen [Mass/volume] in Urine by Test strip 1 less komal n 1.0 mg/dL [facility] MICROSCOPIC See Below [facility] WBC 1 - 3 NORMAL: NONE SEEN [facility] Erythrocytes [#/volume] in Urine by Test strip 0 - 1 NORMAL: NON E SEEN [facility] EPITHELIAL MODERATE NORMAL: NONE SEEN A [facility] Bacteria [Presence] in Urine sediment by Light microscopy Tr nicolas NORMAL: NONE SEEN [facility] Mucus [Presence] in Urine sediment by Light microscopy 2+ NOR MAL: NONE SEEN A [facility] Procedure Social History Code Duration Value Status Description Data Source(s ) Smoking 11/12/2020 12:00:00 AM EDT Never Smoker completed Never S moker eCW1 ([facility]) Smoking 11/12/2020 12:00:00 AM EDT Never Smoker completed Never S moker eCW1 ([facility]) Smoking 11/12/2020 12:00:00 AM EDT Never Smoker completed Never S moker eCW1 ([facility]) Smoking 11/12/2020 12:00:00 AM EDT Never Smoker completed Never S moker eCW1 ([facility]) Smoking 11/12/2020 12:00:00 AM EDT Never Smoker completed Never S moker eCW1 ([facility]) Smoking 09/28/2020 12:00:00 AM EDT Never Smoker completed Never S moker eCW1 ([facility]) Smoking 09/28/2020 12:00:00 AM EDT Never Smoker completed Never S moker eCW1 ([facility]) Smoking 09/28/2020 12:00:00 AM EDT Never Smoker completed Never S moker eCW1 ([facility]) Smoking 09/28/2020 12:00:00 AM EDT Never Smoker completed Never S moker eCW1 ([facility]) Smoking 08/21/2020 12:00:00 AM EDT Never Smoker completed Never S moker eCW1 ([facility]) Smoking 03/26/2020 12:00:00 AM EST Never Smoker completed Never S moker eCW1 ([facility]) Smoking 03/26/2020 12:00:00 AM EST Never Smoker completed Never S moker eCW1 ([facility]) Smoking 03/26/2020 12:00:00 AM EST Never Smoker completed Never S moker eCW1 ([facility]) Vital Signs ID Date Data Source UNK Name Value Range Interpretation Code Description Data Source(s) Body weight 194.8 [lb_av] 194.8 [lb_av] eCW1 ([facility]) Body height 63 [in_i] 63 [in_i] W1 ([facility]) Body mass index (BMI) [Ratio] 34.507 kg/m2 34.5 07 kg/m2 eCW1 ([facility]) Systolic blood pressure 118 mm[Hg] 118 mm[Hg] e CW1 ([facility]) Diastolic blood pressure 74 mm[Hg] 74 mm[Hg] eCW1 ([facility]) Body weight 190.6 [lb_av] 190.6 [lb_av] eCW1 ([facility]) Body height 63 [in_i] 63 [in_i] eCW1 ([facility]) Body mass index (BMI) [Ratio] 33.76 kg/m2 33.76 kg/m2 eCW1 ([facility]) Heart rate 103 /min 103 /min eCW1 ([facility]) Respiratory rate 18 /min 18 /min eCW1 [facility] Body temperature 97.8 [degF] 97.8 [degF] eCW1 ( [facility]) Systolic blood pressure 114 mm[Hg] 114 mm[Hg] e CW1 ([facility]) Diastolic blood pressure 78 mm[Hg] 78 mm[Hg] eCW1 ([facility]) Body weight 191 [lb_av] 191 [lb_av] eCW1 ([facility]) Body height 63 [in_i] 63 [in_i] eCW1 ([facility]) Body mass index (BMI) [Ratio] 33.83 kg/m2 33.83 kg/m2 eCW1 ([facility]) Heart rate 86 /min 86 /min eCW1 ([facility]) Respiratory rate 17 /min 17 /min eCW1 ([facility] Body temperature 97.6 [degF] 97.6 [degF] eCW1 ( [facility]) Systolic blood pressure 119 mm[Hg] 119 mm[Hg] e CW1 ([facility]) Diastolic blood pressure 66 mm[Hg] 66 mm[Hg] eCW1 ([facility]) Body weight 197.4 [lb_av] 197.4 [lb_av] eCW1 ([facility]) Body height 63 [in_i] 63 [in_i] eCW1 ([facility]) Body mass index (BMI) [Ratio] 34.96 kg/m2 34.96 kg/m2 eCW1 ([facility]) Systolic blood pressure 121 mm[Hg] 121 mm[Hg] e CW1 ([facility]) Heart rate 68 /min 68 /min eCW1 ([facility]) Diastolic blood pressure 65 mm[Hg] 65 mm[Hg] eCW1 ([facility]) Respiratory rate 16 /min 16 /min eCW1 ([facility]) Body temperature 97.5 [degF] 97.5 [degF] eCW1 ( [facility]) Patient Treatment Plan of Care Planned Activity Planned Date Details Description Data Source (s) Docusate Sodium 100 MG Oral Capsule 11/12/2020 12:00:00 AM EDT eCW1 ([facility]) ferrous gluconate 324 MG Oral Tablet 11/12/2020 12:00:00 AM EDT eCW1 ([facility]) Docusate Sodium 100 MG Oral Capsule 11/12/2020 12:00:00 AM EDT eCW1 ([facility]) ferrous gluconate 324 MG Oral Tablet 11/12/2020 12:00:00 AM EDT eCW1 ([facility]) Docusate Sodium 100 MG Oral Capsule 11/12/2020 12:00:00 AM EDT eCW1 ([facility]) ferrous gluconate 324 MG Oral Tablet 11/12/2020 12:00:00 AM EDT eCW1 ([facility]) Docusate Sodium 100 MG Oral Capsule 11/12/2020 12:00:00 AM EDT eCW1 ([facility]) ferrous gluconate 324 MG Oral Tablet 11/12/2020 12:00:00 AM EDT eCW1 ([facility]) Docusate Sodium 100 MG Oral Capsule 11/12/2020 12:00:00 AM EDT eCW1 ([facility]) ferrous gluconate 324 MG Oral Tablet 11/12/2020 12:00:00 AM EDT eCW1 ([facility]) 27-1 MG 10/01/2020 12:00:00 AM EDT eCW1 ([facility]) 27-1 MG 10/01/2020 12:00:00 AM EDT eCW1 ([facility]) 27-1 MG 10/01/2020 12:00:00 AM EDT eCW1 ([facility]) Amoxicillin 875 MG / Clavulanate 125 MG Oral Tablet 09/29/19 12:00:00 AM EDT eCW1 ([facility]) Amoxicillin 875 MG / Clavulanate 125 MG Oral Tablet 09/29/19 12:00:00 AM EDT eCW1 ([facility]) Amoxicillin 875 MG / Clavulanate 125 MG Oral Tablet 09/29/19 12:00:00 AM EDT eCW1 ([facility]) Amoxicillin 875 MG / Clavulanate 125 MG Oral Tablet 09/29/19 12:00:00 AM EDT eCW1 ([facility]) Ibuprofen 800 MG Oral Tablet 08/12/2020 12:00:00 AM EDT eCW1 ([facility]) Albuterol Sulfate HFA 108 (90 Base) MCG/ACT 03/26/2020 12:00:00 AM EST eCW1 ([facility]) Norgestim-Eth Estrad Triphasic 0.18/0.215/0.25 MG-35 M CG 03/26/2020 12:00:00 AM EST eCW1 ([facility]) Albuterol Sulfate HFA 108 (90 Base) MCG/ACT 03/26/2020 12:00:00 AM EST eCW1 ([facility]) Norgestim-Eth Estrad Triphasic 0.18/0.215/0.25 MG-35 M CG 03/26/2020 12:00:00 AM EST eCW1 ([facility]) Albuterol Sulfate HFA 108 (90 Base) MCG/ACT 03/26/2020 12:00:00 AM EST eCW1 ([facility]) Norgestim-Eth Estrad Triphasic 0.18/0.215/0.25 MG-35 M CG 03/26/2020 12:00:00 AM EST eCW1 ([facility])
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
--- OUTSIDE RECORDS SUMMARY | 2020-12-13 22:58 | CCD ---
Author Author [facility] Organization [facility] Address Unknown Phone Unavailable Care Team Providers Care Extension Service Advisor Name Role Phone Maring, Cornell PA Unavailable [...] T Rubi PA Unavailable Unavailable Feola, T Ruib PA Unavailable Unavailable Feola, T Rubi PA [...] TURRIN, TAYE Unavailable Unavailable Brandyn, R Faina EVAPORATIVE COOLER INSTALLER Unavailable Unavailable Brandyn, R Faina EVAPORATIVE COOLER INSTALLER Unavailable Unavailable Brandyn, R Faina EVAPORATIVE COOLER INSTALLER Unavailable Unavailable Brandyn, R Faian EVAPORATIVE COOLER INSTALLER Unavailable Unavailable Rbandyn, R Faina EVAPORATIVE COOLER INSTALLER Unavailable Unavailable Brandyn, R Faina EVAPORATIVE COOLER INSTALLER Unavailable Unavailable Brandyn, R Faina EVAPORATIVE COOLER INSTALLER Unavailable Unavailable Brandyn, R Faina EVAPORATIVE COOLER INSTALLER Unavailable Unavailable Brandyn, R Faina EVAPORATIVE COOLER INSTALLER Unavailable Unavailable Brandyn, R Faina EVAPORATIVE COOLER INSTALLER Unavailable Unavailable Brandyn, R Faina EVAPORATIVE COOLER INSTALLER Unavailable Unavailable Brandyn, R Faina EVAPORATIVE COOLER INSTALLER Unavailable Unavailable Brandyn, R Faina EVAPORATIVE COOLER INSTALLER Unavailable Unavailable Brandyn, R Faina EVAPORATIVE COOLER INSTALLER Unavailable Unavailable Brandyn, R Faina EVAPORATIVE COOLER INSTALLER Unavailable Unavailable Brandyn, R Faina EVAPORATIVE COOLER INSTALLER Unavailable Unavailable Brandyn, R Faina EVAPORATIVE COOLER INSTALLER Unavailable Unavailable Brandyn, R Faina EVAPORATIVE COOLER INSTALLER Unavailable Unavailable Brandyn, R Faina EVAPORATIVE COOLER INSTALLER Unavailable Unavailable Brandyn, R Faina EVAPORATIVE COOLER INSTALLER Unavailable Unavailable Brandyn, R Faina EVAPORATIVE COOLER INSTALLER Unavailable Unavailable Brandyn, R Faina EVAPORATIVE COOLER INSTALLER Unavailable Unavailable Brandyn, R Faina EVAPORATIVE COOLER INSTALLER Unavailable Unavailable Brandyn, R Faina EVAPORATIVE COOLER INSTALLER Unavailable Unavailable Brandyn, R Faina EVAPORATIVE COOLER INSTALLER Unavailable Unavailable Brandyn, R Faina EVAPORATIVE COOLER INSTALLER Unavailable Unavailable Brandyn, R Faina EVAPORATIVE COOLER INSTALLER Unavailable Unavailable Brandyn, R Faina EVAPORATIVE COOLER INSTALLER Unavailable Unavailable Brandyn, R Faina EVAPORATIVE COOLER INSTALLER Unavailable Unavailable Brandyn, R Faina EVAPORATIVE COOLER INSTALLER Unavailable Unavailable Brandyn, R Faina EVAPORATIVE COOLER INSTALLER Unavailable Unavailable Brandyn, R Faina EVAPORATIVE COOLER INSTALLER Unavailable Unavailable Brandyn, R Faina EVAPORATIVE COOLER INSTALLER Unavailable Unavailable Brandyn, R Faina EVAPORATIVE COOLER INSTALLER Unavailable Unavailable Brandyn, R Faina EVAPORATIVE COOLER INSTALLER Unavailable Unavailable Brandyn, R Faina EVAPORATIVE COOLER INSTALLER Unavailable Unavailable Brandyn, R Faina EVAPORATIVE COOLER INSTALLER Unavailable Unavailable Brandyn, R Faina EVAPORATIVE COOLER INSTALLER Unavailable Unavailable Brandyn, R Faina EVAPORATIVE COOLER INSTALLER Unavailable Unavailable Brandyn, R Faina EVAPORATIVE COOLER INSTALLER Unavailable Unavailable Re-disclosure Warning The records that [...] is protected by Article 27-F of the [facility] Public Health law. If you continue you may have access to information: Regarding HIV / AIDS; Provided by facilities licensed or operated by the [facility] Office of Mental Health; or Provided by the [facility] Office for People With Developmental Disabilities. If such information is present, then the following [facility] mandated warning applies: This information has been [...] law may result in a fine or fpc sentence or both. A general authorization for the release of medical or other information is NOT sufficient authorization for further disc losure. Encounters Encounter Providers Location Date Indications Data Source(s ) Unknown [address] [facility] [place] [address] 12/01/2020 12:00:00 AM EDT eCW1 ([facility]) Unknown [address] [facility] [place] [address] 11/30/2020 12:00:00 AM EDT eCW1 ([facility]) Unknown [address] [facility] [place] [address] 11/13/2020 12:00:00 AM EDT eCW1 ([facility]) ([facility]) [facility] OB Visit [address] [place] [address] 11/12/2020 12:00:00 AM EDT eCW1 ([facility]) Unknown [address] [facility] [address] 11/06/2020 12:00:00 AM EDT eCW1 ([facility]) Unknown [address] [facility] [place] [address] 10/26/2020 12:00:00 AM EDT eCW1 ([facility]) Unknown [address] [facility] [address] 10/02/2020 12:00:00 AM EDT eCW1 ([facility]) Unknown [address] [facility] [address] 10/01/2020 12:00:00 AM EDT eCW1 ([facility]) Outpatient [address] [facility] [address] 09/28/2020 12:00:00 AM EDT eCW1 ([facility]) Outpatient 09/21/2020 02:43:40 PM EDT [facility] ([facility]) Outpatient Attender: Rubi STANTON 021 02:41:42 PM EDT - 09/21/2020 05:00:53 PM EDT [facility] ([facility] ) Outpatient Attender: Cornell STANTON 09/20/19 10:37:53 AM EDT - 09/19/2020 10:48:32 AM EDT [facility] ([facility] ) Emergency Attender: TAYE Rothmansultant: Faina adame EVAPORATIVE COOLER INSTALLER 08/21/2020 09:22:00 PM EDT - 08/22/2020 04:27:00 AM EDT [facility] Patient discharged. Outpatient [address] [facility] [place] [address] 08/21/2020 12:00:00 AM EDT eCW1 ([facility]) [place] [address] [facility] [place] [address] 08/12/2020 12:00:00 AM EDT eCW1 ([facility]) Unknown [address] [facility] [place] [address] 07/14/2020 12:00:00 AM EDT eCW1 ([facility]) Outpatient [address] [facility] [place] [address] 03/26/2020 12:00:00 AM EST eCW1 ([facility]) Outpatient Attender: Rubi STANTON 021 11:08:53 AM EST - 03/13/2020 11:30:18 AM EST [facility] ([facility] ) Outpatient Attender: Cornell STANTON 03/07/19 09:53:03 AM EST - 03/07/2020 10:33:52 AM EST [facility] ([facility] ) Medications Medication Brand Name Start Date Product Form Dose Route Admi nistrative Instructions Pharmacy Instructions Status Indications Reaction Description Data Source(s) Docusate Sodium 100 MG Oral Capsule Stool Softener [address] ool Softener 100 MG 11/12/2020 12:00:00 AM EDT active Stool Softener 100 MG eCW1 ([facility]) ferrous gluconate 324 MG Oral Tablet Ferrous Gluconate 324 (38 Fe) MG Ferrous Gluconate 324 (38 Fe) MG 11/12/2020 12:00:00 AM EDT active Ferrous Gluconate 324 (38 Fe) MG eCW1 ([facility]) ferrous gluconate 324 MG Oral Tablet Ferrous Gluconate 324 (38 Fe) MG Ferrous Gluconate 324 (38 Fe) MG 11/12/2020 12:00:00 AM EDT active Ferrous Gluconate 324 (38 Fe) MG eCW1 ([facility]) Docusate Sodium 100 MG Oral Capsule Stool Softener [address] ool Softener 100 MG 11/12/2020 12:00:00 AM EDT active Stool Softener 100 MG eCW1 ([facility]) ferrous gluconate 324 MG Oral Tablet Ferrous Gluconate 324 (38 Fe) MG Ferrous Gluconate 324 (38 Fe) MG 11/12/2020 12:00:00 AM EDT active Ferrous Gluconate 324 (38 Fe) MG eCW1 ([facility]) Docusate Sodium 100 MG Oral Capsule Stool Softener [address] ool Softener 100 MG 11/12/2020 12:00:00 AM EDT active Stool Softener 100 MG eCW1 ([facility]) ferrous gluconate 324 MG Oral Tablet Ferrous Gluconate 324 (38 Fe) MG Ferrous Gluconate 324 (38 Fe) MG 11/12/2020 12:00:00 AM EDT active Ferrous Gluconate 324 (38 Fe) MG eCW1 ([facility]) ferrous gluconate 324 MG Oral Tablet Ferrous Gluconate 324 (38 Fe) MG Ferrous Gluconate 324 (38 Fe) MG 11/12/2020 12:00:00 AM EDT active Ferrous Gluconate 324 (38 Fe) MG eCW1 ([facility]) Docusate Sodium 100 MG Oral Capsule Stool Softener [address] ool Softener 100 MG 11/12/2020 12:00:00 AM EDT active Stool Softener 100 MG eCW1 ([facility]) Docusate Sodium 100 MG Oral Capsule Stool Softener [address] ool Softener 100 MG 11/12/2020 12:00:00 AM EDT active Stool Softener 100 MG eCW1 ([facility]) 27-1 MG 27-1 MG 10/01/2020 12:00:00 AM EDT 1.0 {tablet} active 27-1 MG eCW1 ([facility]) 27-1 MG 27-1 MG 10/01/2020 12:00:00 AM EDT 1.0 {tablet} active 27-1 MG eCW1 ([facility]) 27-1 MG 27-1 MG 10/01/2020 12:00:00 AM EDT 1.0 {tablet} active 27-1 MG eCW1 ([facility]) 27-1 MG 27-1 MG 10/01/2020 12:00:00 AM EDT 1.0 {tablet} active 27-1 MG eCW1 ([facility]) 27-1 MG 27-1 MG 10/01/2020 12:00:00 AM EDT 1.0 {tablet} active 27-1 MG eCW1 ([facility]) 27-1 MG 27-1 MG 10/01/2020 12:00:00 AM EDT 1.0 {tablet} active 27-1 MG eCW1 ([facility]) 27-1 MG 27-1 MG 10/01/2020 12:00:00 AM EDT 1.0 {tablet} active 27-1 MG eCW1 ([facility]) 27-1 MG 27-1 MG 10/01/2020 12:00:00 AM EDT 1.0 {tablet} active 27-1 MG eCW1 ([facility]) Amoxicillin 875 MG / Clavulanate 125 MG Oral Tablet Amoxicillin-Pot Clavulanate 875-125 MG Amoxicillin-Pot Clavulanate 875-125 MG 09/28/2020 12:00:00 AM ED T 1.0 {tablet} suspended Amoxicillin-Pot C lavulanate 875-125 MG eCW1 ([facility]) Amoxicillin 875 MG / Clavulanate 125 MG Oral Tablet Amoxicillin-Pot Clavulanate 875-125 MG Amoxicillin-Pot Clavulanate 875-125 MG 09/28/2020 12:00:00 AM ED T 1.0 {tablet} active Amoxicillin-Pot Cla vulanate 875-125 MG eCW1 ([facility]) Amoxicillin 875 MG / Clavulanate 125 MG Oral Tablet Amoxicillin-Pot Clavulanate 875-125 MG Amoxicillin-Pot Clavulanate 875-125 MG 09/28/2020 12:00:00 AM ED T 1.0 {tablet} suspended Amoxicillin-Pot C lavulanate 875-125 MG eCW1 ([facility]) Amoxicillin 875 MG / Clavulanate 125 MG Oral Tablet Amoxicillin-Pot Clavulanate 875-125 MG Amoxicillin-Pot Clavulanate 875-125 MG 09/28/2020 12:00:00 AM ED T 1.0 {tablet} active Amoxicillin-Pot Cla vulanate 875-125 MG eCW1 ([facility]) Amoxicillin 875 MG / Clavulanate 125 MG Oral Tablet Amoxicillin-Pot Clavulanate 875-125 MG Amoxicillin-Pot Clavulanate 875-125 MG 09/28/2020 12:00:00 AM ED T 1.0 {tablet} active Amoxicillin-Pot Cla vulanate 875-125 MG eCW1 ([facility]) Amoxicillin 875 MG / Clavulanate 125 MG Oral Tablet Amoxicillin-Pot Clavulanate 875-125 MG Amoxicillin-Pot Clavulanate 875-125 MG 09/28/2020 12:00:00 AM ED T 1.0 {tablet} active Amoxicillin-Pot Cla vulanate 875-125 MG eCW1 ([facility]) Amoxicillin 875 MG / Clavulanate 125 MG Oral Tablet Amoxicillin-Pot Clavulanate 875-125 MG Amoxicillin-Pot Clavulanate 875-125 MG 09/28/2020 12:00:00 AM ED T 1.0 {tablet} suspended Amoxicillin-Pot C lavulanate 875-125 MG eCW1 ([facility]) Amoxicillin 875 MG / Clavulanate 125 MG Oral Tablet Amoxicillin-Pot Clavulanate 875-125 MG Amoxicillin-Pot Clavulanate 875-125 MG 09/28/2020 12:00:00 AM ED T 1.0 {tablet} suspended Amoxicillin-Pot C lavulanate 875-125 MG eCW1 ([facility]) Amoxicillin 875 MG / Clavulanate 125 MG Oral Tablet Amoxicillin-Pot Clavulanate 875-125 MG Amoxicillin-Pot Clavulanate 875-125 MG 09/28/2020 12:00:00 AM ED T 1.0 {tablet} suspended Amoxicillin-Pot C lavulanate 875-125 MG eCW1 ([facility]) Ibuprofen 800 MG Oral Tablet Ibuprofen 800 MG 08/12/2020 12:00:00 AM E DT active Ibuprofen 800 MG eCW1 ([facility]) Ibuprofen 800 MG Oral Tablet Ibuprofen 800 MG 08/12/2020 12:00:00 AM E DT suspended Ibuprofen 800 MG eCW1 ([facility]) Ibuprofen 800 MG Oral Tablet Ibuprofen 800 MG 08/12/2020 12:00:00 AM E DT active Ibuprofen 800 MG eCW1 ([facility]) Ibuprofen 800 MG Oral Tablet Ibuprofen 800 MG 08/12/2020 12:00:00 AM E DT suspended Ibuprofen 800 MG eCW1 ([facility]) Ibuprofen 800 MG Oral Tablet Ibuprofen 800 MG 08/12/2020 12:00:00 AM E DT suspended Ibuprofen 800 MG eCW1 ([facility]) Ibuprofen 800 MG Oral Tablet Ibuprofen 800 MG 08/12/2020 12:00:00 AM E DT active Ibuprofen 800 MG eCW1 ([facility]) Ibuprofen 800 MG Oral Tablet Ibuprofen 800 MG 08/12/2020 12:00:00 AM E DT active Ibuprofen 800 MG eCW1 ([facility]) Ibuprofen 800 MG Oral Tablet Ibuprofen 800 MG 08/12/2020 12:00:00 AM E DT suspended Ibuprofen 800 MG eCW1 ([facility]) Ibuprofen 800 MG Oral Tablet Ibuprofen 800 MG 08/12/2020 12:00:00 AM E DT active Ibuprofen 800 MG eCW1 ([facility]) Ibuprofen 800 MG Oral Tablet Ibuprofen 800 MG 08/12/2020 12:00:00 AM E DT active Ibuprofen 800 MG eCW1 ([facility]) Ibuprofen 800 MG Oral Tablet Ibuprofen 800 MG 08/12/2020 12:00:00 AM E DT suspended Ibuprofen 800 MG eCW1 ([facility]) Norgestim-Eth Estrad Triphasic 0.18/0.215/0.25 MG-35 M CG Norgestim-Eth Estrad Triphasic 0.18/0.215/0.25 MG-35 MCG 03/26/2020 12:00:00 AM EST 1.0 {tablet} active Norgestim-Eth Estrad Trip hasic 0.18/0.215/0.25 MG-35 MCG eCW1 ([facility]) Norgestim-Eth Estrad Triphasic 0.18/0.215/0.25 MG-35 M CG Norgestim-Eth Estrad Triphasic 0.18/0.215/0.25 MG-35 MCG 03/26/2020 12:00:00 AM EST 1.0 {tablet} active Norgestim-Eth Estrad Trip hasic 0.18/0.215/0.25 MG-35 MCG eCW1 ([facility]) Albuterol Sulfate HFA 108 (90 Base) MCG/ACT Albuterol Sulfate HFA 108 (90 Base) MCG/ACT 03/26/2020 12:00:00 AM EST 1.0 {puff_as_needed} suspended Albuterol Sulfate HFA 108 (90 Base) MCG/ACT eCW1 ([facility]) Albuterol Sulfate HFA 108 (90 Base) MCG/ACT Albuterol Sulfate HFA 108 (90 Base) MCG/ACT 03/26/2020 12:00:00 AM EST 1.0 {puff_as_needed} suspended Albuterol Sulfate HFA 108 (90 Base) MCG/ACT eCW1 ([facility]) Albuterol Sulfate HFA 108 (90 Base) MCG/ACT Albuterol Sulfate HFA 108 (90 Base) MCG/ACT 03/26/2020 12:00:00 AM EST 1.0 {puff_as_needed} suspended Albuterol Sulfate HFA 108 (90 Base) MCG/ACT eCW1 ([facility]) Norgestim-Eth Estrad Triphasic 0.18/0.215/0.25 MG-35 M CG Norgestim-Eth Estrad Triphasic 0.18/0.215/0.25 MG-35 MCG 03/26/2020 12:00:00 AM EST 1.0 {tablet} active Norgestim-Eth Estrad Trip hasic 0.18/0.215/0.25 MG-35 MCG eCW1 ([facility]) Norgestim-Eth Estrad Triphasic 0.18/0.215/0.25 MG-35 M CG Norgestim-Eth Estrad Triphasic 0.18/0.215/0.25 MG-35 MCG 03/26/2020 12:00:00 AM EST 1.0 {tablet} suspended Norgestim-Eth Estrad Trip hasic 0.18/0.215/0.25 MG-35 MCG eCW1 ([facility]) Albuterol Sulfate HFA 108 (90 Base) MCG/ACT Albuterol Sulfate HFA 108 (90 Base) MCG/ACT 03/26/2020 12:00:00 AM EST 1.0 {puff_as_needed} active Albuterol Sulfate HFA 108 (90 Base) MCG/ACT eCW1 ([facility]) Albuterol Sulfate HFA 108 (90 Base) MCG/ACT Albuterol Sulfate HFA 108 (90 Base) MCG/ACT 03/26/2020 12:00:00 AM EST 1.0 {puff_as_needed} suspended Albuterol Sulfate HFA 108 (90 Base) MCG/ACT eCW1 ([facility]) Albuterol Sulfate HFA 108 (90 Base) MCG/ACT Albuterol Sulfate HFA 108 (90 Base) MCG/ACT 03/26/2020 12:00:00 AM EST 1.0 {puff_as_needed} suspended Albuterol Sulfate HFA 108 (90 Base) MCG/ACT eCW1 ([facility]) Albuterol Sulfate HFA 108 (90 Base) MCG/ACT Albuterol Sulfate HFA 108 (90 Base) MCG/ACT 03/26/2020 12:00:00 AM EST 1.0 {puff_as_needed} suspended Albuterol Sulfate HFA 108 (90 Base) MCG/ACT eCW1 ([facility]) Albuterol Sulfate HFA 108 (90 Base) MCG/ACT Albuterol Sulfate HFA 108 (90 Base) MCG/ACT 03/26/2020 12:00:00 AM EST 1.0 {puff_as_needed} active Albuterol Sulfate HFA 108 (90 Base) MCG/ACT eCW1 ([facility]) Norgestim-Eth Estrad Triphasic 0.18/0.215/0.25 MG-35 M CG Norgestim-Eth Estrad Triphasic 0.18/0.215/0.25 MG-35 MCG 03/26/2020 12:00:00 AM EST 1.0 {tablet} active Norgestim-Eth Estrad Trip hasic 0.18/0.215/0.25 MG-35 MCG eCW1 ([facility]) Norgestim-Eth Estrad Triphasic 0.18/0.215/0.25 MG-35 M CG Norgestim-Eth Estrad Triphasic 0.18/0.215/0.25 MG-35 MCG 03/26/2020 12:00:00 AM EST 1.0 {tablet} active Norgestim-Eth Estrad Trip hasic 0.18/0.215/0.25 MG-35 MCG eCW1 ([facility]) Norgestim-Eth Estrad Triphasic 0.18/0.215/0.25 MG-35 M CG Norgestim-Eth Estrad Triphasic 0.18/0.215/0.25 MG-35 MCG 03/26/2020 12:00:00 AM EST 1.0 {tablet} suspended Norgestim-Eth Estrad Trip hasic 0.18/0.215/0.25 MG-35 MCG eCW1 ([facility]) Norgestim-Eth Estrad Triphasic 0.18/0.215/0.25 MG-35 M CG Norgestim-Eth Estrad Triphasic 0.18/0.215/0.25 MG-35 MCG 03/26/2020 12:00:00 AM EST 1.0 {tablet} active Norgestim-Eth Estrad Trip hasic 0.18/0.215/0.25 MG-35 MCG eCW1 ([facility]) Albuterol Sulfate HFA 108 (90 Base) MCG/ACT Albuterol Sulfate HFA 108 (90 Base) MCG/ACT 03/26/2020 12:00:00 AM EST 1.0 {puff_as_needed} suspended Albuterol Sulfate HFA 108 (90 Base) MCG/ACT eCW1 ([facility]) Norgestim-Eth Estrad Triphasic 0.18/0.215/0.25 MG-35 M CG Norgestim-Eth Estrad Triphasic 0.18/0.215/0.25 MG-35 MCG 03/26/2020 12:00:00 AM EST 1.0 {tablet} suspended Norgestim-Eth Estrad Trip hasic 0.18/0.215/0.25 MG-35 MCG eCW1 ([facility]) Norgestim-Eth Estrad Triphasic 0.18/0.215/0.25 MG-35 M CG Norgestim-Eth Estrad Triphasic 0.18/0.215/0.25 MG-35 MCG 03/26/2020 12:00:00 AM EST 1.0 {tablet} active Norgestim-Eth Estrad Trip hasic 0.18/0.215/0.25 MG-35 MCG eCW1 ([facility]) Norgestim-Eth Estrad Triphasic 0.18/0.215/0.25 MG-35 M CG Norgestim-Eth Estrad Triphasic 0.18/0.215/0.25 MG-35 MCG 03/26/2020 12:00:00 AM EST 1.0 {tablet} active Norgestim-Eth Estrad Trip hasic 0.18/0.215/0.25 MG-35 MCG eCW1 ([facility]) Albuterol Sulfate HFA 108 (90 Base) MCG/ACT Albuterol Sulfate HFA 108 (90 Base) MCG/ACT 03/26/2020 12:00:00 AM EST 1.0 {puff_as_needed} suspended Albuterol Sulfate HFA 108 (90 Base) MCG/ACT eCW1 ([facility]) Albuterol Sulfate HFA 108 (90 Base) MCG/ACT Albuterol Sulfate HFA 108 (90 Base) MCG/ACT 03/26/2020 12:00:00 AM EST 1.0 {puff_as_needed} suspended Albuterol Sulfate HFA 108 (90 Base) MCG/ACT eCW1 ([facility]) Norgestim-Eth Estrad Triphasic 0.18/0.215/0.25 MG-35 M CG Norgestim-Eth Estrad Triphasic 0.18/0.215/0.25 MG-35 MCG 03/26/2020 12:00:00 AM EST 1.0 {tablet} suspended Norgestim-Eth Estrad Trip hasic 0.18/0.215/0.25 MG-35 MCG eCW1 ([facility]) Albuterol Sulfate HFA 108 (90 Base) MCG/ACT Albuterol Sulfate HFA 108 (90 Base) MCG/ACT 03/26/2020 12:00:00 AM EST 1.0 {puff_as_needed} active Albuterol Sulfate HFA 108 (90 Base) MCG/ACT eCW1 ([facility]) Albuterol Sulfate HFA 108 (90 Base) MCG/ACT Albuterol Sulfate HFA 108 (90 Base) MCG/ACT 03/26/2020 12:00:00 AM EST 1.0 {puff_as_needed} suspended Albuterol Sulfate HFA 108 (90 Base) MCG/ACT eCW1 ([facility]) Norgestim-Eth Estrad Triphasic 0.18/0.215/0.25 MG-35 M CG Norgestim-Eth Estrad Triphasic 0.18/0.215/0.25 MG-35 MCG 03/26/2020 12:00:00 AM EST 1.0 {tablet} suspended Norgestim-Eth Estrad Trip hasic 0.18/0.215/0.25 MG-35 MCG eCW1 ([facility]) Insurance Providers Payer name Policy type / Coverage type Policy ID Covered democrat ID Covered democrat's relationship to alejo Policy Alejo Plan Information [employer] [id number] Self [id number] RPR- Needs Payer Match [id number] Self [id number] ESCREEN NATIONAL ACCOUNT emp [id number] Employee [id number] RPR- Needs Payer Match [id number] Self [id number] [facility] [id number] [facility] [id number] 18 [id number] Problems, Conditions, and Diagnoses Code Display Name Description Problem Type Effective Dates Data Source(s) Z6833 Body mass index [BMI] 33.0-33.9, adult B rhonda mass index [BMI] 33.0-33.9, adult Diagnosis 08/21/2020 09:22:00 PM EDT [facility] E669 Obesity, unspecified Obesity, unspecified Diagnosis 08/21/2020 09:22:00 PM EDT [facility] N3000 Acute cystitis without hematuria Acute cystitis without hematuria Diagnosis 08/21/2020 09:22:00 PM EDT [facility] R1031 Right lower quadrant pain Right lower quadrant pain Di agnosis 08/21/2020 09:22:00 PM EDT [facility] Z34.80 care Supervision of other normal P yakovlem 11/06/2020 12:00:00 AM EDT eCW1 ([facility]) N92.6 [id number] Missed menses Problem 10/01/2020 12:00:00 AM EDT eCW1 ([facility]) N92.6 [id number] Irregular menstrual bleeding Problem 021 12:00:00 AM EDT eCW1 ([facility]) N94.6 [id number] Painful menstruation Problem 08/12/2020 12:0 0:00 AM EDT eCW1 ([facility]) Surgeries/Procedures No Information Results ID Date Data Source URINE CULTURE 11/13/2020 12:00:00 AM EDT eCW1 ([facility]) Name Value Range Interpretation Code Description Data Abiola rce(s) Supporting Document(s) URINE CULTURE eCW1 ([facility]) ID Date Data Source HBSAG 11/13/2020 12:00:00 AM EDT eCW1 ([facility]) Name Value Range Interpretation Code Description Data Abiola rce(s) Supporting Document(s) NEGATIVE NEGATIVE HBsAg eCW1 ([facility]) ID Date Data Source RUBELLA IMMUNE STATUS IgG 11/13/2020 12:00:00 AM EDT [facility] Name Value Range Interpretation Code Description Data Abiola rce(s) Supporting Document(s) IMMUNE IMMUNE RUBELLA IgG QUALITATIVE eCW1 ( [facility]) ID Date Data Source SYPHILIS ANTIBODY (RPR SCREEN) 11/13/2020 12:00:00 AM EDT eC W1 ([facility]) Name Value Range Interpretation Code Description Data Abiola rce(s) Supporting Document(s) NONREACTIVE NONREACTIVE SYPHILIS eCW1 ([facility]) ID Date Data Source [id number] 11/13/2020 12:00:00 AM EDT eCW1 ([facility]) Name Value Range Interpretation Code Description Data Abiola rce(s) Supporting Document(s) HIV 1and2 ANTIBODY SCREEN eCW1 ([facility]) ID Date Data Source HEPATITIS C ANTIBODY INDEX 11/13/2020 12:00:00 AM EDT eCW1 ( [facility]) Name Value Range Interpretation Code Description Data Abiola rce(s) Supporting Document(s) 0.1 <0.8 HEPATITIS C VIRUS KIMBERLY INDEX eC W1 ([facility]) ID Date Data Source CHLAMYDIA & GC DNA AMPLIFICAT 11/13/2020 12:00:00 AM EDT eCW 1 ([facility]) Name Value Range Interpretation Code Description Data Abiola rce(s) Supporting Document(s) Chlamydia trachomatis rRNA [Presence] in Unspecified specimen by Probe and target amplification method NEGATIVE NEGATIVE CHLAMYDIA DNA AMPLIFICATION eCW1 ([facility]) ID Date Data Source Type and Screen Prenatal1 11/13/2020 12:00:00 AM EDT eCW1 ([facility] Name Value Range Interpretation Code Description Data Abiola rce(s) Supporting Document(s) NEGATIVE AB SCREEN PNP1 GEL (VIS) eCW1 ([facility]) ID Date Data Source [id number] 09/21/2020 02:45:00 PM EDT [facility] Name Value Range Interpretation Code Description Data Abiola rce(s) Supporting Document(s) SARS-CoV-2 RNA Resp Ql DAVID+probe NOT DETECTED [facility] This lab was ordered by KATHY michel and reported by KATHY Jasso. ID Date Data Source [id number] 08/21/2020 09:22:00 PM EDT [facility] 1 OrderSheet [facility] Emergency Department [address] [place] [address] Phone #: [phone] vmp- 1992 08/21/2020 21:08 Patient: DOUG LANTIGUA Sex: F [...] Master,Contrast Only Candierin, TayeCasandra Peter 2 OrderSheet [facility] Emergency Department [address] [place] [address] Phone #: ext- [phone] 08/21/2020 21:08 Patient: [...] rce(s) Supporting Document(s) ID Date Data Source [id number] 08/21/2020 09:22:00 PM EDT [facility] 1 Medication Reconciliation Report [facility] Emergency Department [address] [place] [address] Phone #: ext- [phone] 08/21/2020 21:08 Patient: [...] Dispense 10 capsule. Refills: 0.Substitution permitted.Pharmacy - [facility] [phone] ; [place] [address]. FaxNumber: [phone].Pyridium 100 mg tablet Take 1 tablet three times a day for 3 days -- D ispense 9 tablet. Refills: 0.Substitution permitted.Pharmacy - [facility] [phone] ; [place] [address]. . -- Taye Pollack M.D. Name Value Range Interpretation Code Description Data Abiola rce(s) Supporting Document(s) ID Date Data Source [id number] 08/21/2020 09:22:00 PM EDT [facility] 1 Medication Administration Record [facility] Emergency Department [address] [place] [address] Phone #: ext- [phone] 08/21/2020 21:08 Patient: DOUG LANTIGUA Sex: F : 1995 Age: 24yWeight: 86.6 kgHeight/Length: 63 inBMI: 33.8ALLERGIES: Shellfish-derived Products Date/Time Medication Administered Medication OrderedStart SODIUM CHLORIDE [IV] NS IV 1000 mL Bolus: : Bolus [id number] 08/21/2020 Dose: IV Fluids mL (X1)Casandra Bailey [...] rce(s) Supporting Document(s) ID Date Data Source [id number] 08/21/2020 09:22:00 PM EDT [facility] 1 General Instructions [facility] Emergency Department [address] [place] [address] Phone #: ext- [phone] 08/21/2020 21:08 Patient: [...] days -- Dispense 10 capsule. Refills: 0.Substitution permitted.[facility] - [facility] [phone] ; [place] [address]. .Pyridium 100 mg tablet Take 1 tablet three times a day for 3 days -- Dispense 9 tablet. Refills: 0.Substitution permitted.[facility] [phone] ; [place] [address]. .Follow-up:Return to the emergency department as needed. [...] to plan of care. 2 General Instructions [facility] Emergency Department [address] [place] [address] Phone #: ext- [phone] 08/21/2020 21:08 Patient: [...] a bladder infection are: 3 General Instructions [facility] Emergency Department [address] [place] [address] Phone #: ext- [phone] 08/21/2020 21:08 Patient: [...] Fluid loss (dehydration) Constipation 4 General Instructions [facility] Emergency Department [address] [place] [address] Phone #: ext- [phone] 08/21/2020 21:08 Patient: [...] can irritate your bladder. 5 General Instructions [facility] Emergency Department [address] [place] [address] Phone #: ext- [phone] 08/21/2020 21:08 Patient: DOUG LANTIGUA Sex: F [...] if the results will affect your treatment.Call [id number] if any of the following occur: Trouble [...] swelling in the outer vaginal area (labia) [phone] [employer]. [address] [place] [address]. All rights reserved. This information is not intended as asubstitute for professional medical care. Always follow your healthcare professional's instructions. 6 General Instructions [facility] Emergency Department [address] [place] [address] Phone #: ext- [phone] 08/21/2020 21:08 Patient: DOUG LANTIGUA Sex: F : 1995 Age: 24yYou have been given the following additional information:Bladder Infection, Female (Adult)(Electronically signed by Taye Pollack M.D. 08/22/2020 04:31) Name Value Range Interpretation Code Description Data Abiola rce(s) Supporting Document(s) ID Date Data Source [id number] 08/21/2020 09:22:00 PM EDT [facility] 1 Clinical Report - Nurses [facility] Emergency Department [address] [place] [address] Phone #: ext [phone] 08/21/2020 21:08 Patient: DOUG LANTIGUA Sex: F : 1995 Age: 24yTRIAGEArrived by private vehicle. Historian: patient. Accompanied by family.Acuity: LEVEL 3.Chief Complaint: ABDOMINAL PAIN.Alert. No acute distress.( Patient arrives c/o abdominal pain since Monday. Pt states pain has gotten worse. Pt states RLQ anddescribes pain as "my insides feel like they are on fire". 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 (IBU last dose couple hrs ago). [...] before today?". 2 Clinical Report - Nurses [facility] Emergency Department [address] [place] [address], [place] [address] Phone #: ext- [phone] 08/21/2020 21:08 ------- [...] mL saline. 3 Clinical Report - Nurses [facility] Emergency Department [address] [place] [address] Phone #: ext- [phone] 08/21/2020 21:08 Patient: DOUG LANTIGUA Sex: F [...] flushed thoroughly. 4 Clinical Report - Nurses [facility] Emergency Department [address] [place] [address] Phone #: ext- [phone] 08/21/2020 21:08 Patient: [...] Patient verbalized understanding. Written instructions provided in Sami. The patient was discharged home and accompanied [...] rce(s) Supporting Document(s) ID Date Data Source [id number] 08/21/2020 09:22:00 PM EDT [facility] 1 Clinical Report - Physicians/Mid Levels [facility] Emergency Department [address] [place] [address] Phone #: ext- [phone] 08/21/2020 21:08 Patient: [...] normal. 2 Clinical Report - Physicians/Mid Levels [facility] Emergency Department [address] [place] [address] Phone #: ext- [phone] 08/21/2020 21:08 [id number] Sex: [facility] : 1995 Age: 24y Appearance: [...] CT ABD PELVIS W/ IV ONLY INSTITUTION: [facility] ORDERING PHYSICIAN: Taye Pollack PATIENT HISTORY: ABD/PEL (DICOM Hx) EXAM: CT Abdomen and Pelvis with IV contrast CLINICAL HISTORY: CT ABD PELVIS W/IV CONTRAST DX: RLQ PAIN X 3DAYS. PT RECEIVED 75 ML ISOVUE 370 EXP 06/28 [id number] BUN 8 CREATINE 0.6 GFR>60. ACTUAL DOSE [...] EXP 06/28 3 Clinical Report - Physicians/Mid [facility] Emergency Department [address] [place] [address] Phone #: ext- [phone] 08/21/2020 21:08 Patient: [...] 22, 2020 4:08:46 AM EDT by:Nawaf Mas, [employer]. Study type: abdomen and pelvis. Abdominal CT performedwith IV contrast. The study was interpreted by the radiologist.Laboratory Tests: Laboratory tests have been ordered, with results reviewed and considered in the 4 Clinical Report - Physicians/Mid [facility] Emergency Department [address] [place] [address] Phone #: ext- [phone] 08/21/2020 21:08 Patient: DOUG LANTIGUA Sex: F : 1995 Age: 24ymedical decision making process.CT Abd PEL W/ IV Contrast Only: (LEV: 08/22/2020 00:57) ( MsgRcvd 08/22/2020 04:09) Finalresults Exam CT ABD //T// PELVIS W/ [place] [address] ---------NAME--------- NUMBER SEX AGE ADMIT DISC. XRAY# F/C TYPE GRZEGORZ CAMACHO [id number] F 24 08/21/20 [id number] SB2 E/R DATE OF : 1995 M/R# [id number] #: [id number] TR-04 LOCATION: EMERGENCY DEPT TRANSCRIBED: 08/22/20 4:[address] ABD //T// PELVIS W/ IV ONLY [id number] COMPLETED:08/22/20 3:05 SMW [id number] Reason(s): RLQ pain x 3 days PHYSICIAN: CURTIS DONIS R A D I O L O G Y R E P O R T PATIENT HISTORY: CT ABD //T// PELVIS W/IV CONTRAST DX: RLQ PAIN X 3DAYS. PT RECEIVED 75 ML ISOVUE 370 EXP 06/28 [id number] BUN 8 CREATINE 0.6 GFR>60. ACTUAL DOSE [...] RECEIVED 75 ML [address]OV[address] 370 EXP 06/28 [id number] BUN 8 CREATINE 0.6 GFR>60. ACTUAL DOSE [...] RECEIVED 75 ML [address] 370 EXP 06/28 [id number] COMPARISON:None provided. FINDINGS: LUNG BASES: The lung bases appear clear. No pleural effusions are seen. LIVER: Unremarkable. GALLBLADDER AND BILE DUCTS: The gallbladder appears within normal limits. No radioopaque gallstones are seen. No biliary ductal dilatation is evident. PANCREAS: Unremarkable. 5 Clinical Report - Physicians/Mid Levels [facility] Emergency Department [address] [place] [address] Phone #: ext- [phone] 08/21/2020 21:08 Patient: [...] 10.4) 6 Clinical Report - Physicians/Mid Levels [facility] Emergency Department [address] [place] [address] Phone #: ext- [phone] 08/21/2020 21:08 Patient: DOUG LANTIGUA Sex: F [...] Male GFR Interprentation 20-49 yrs >60 mL/min Svwczw96-46 yrs >56 mL/min Normal 60- 69 yrs >49 mL/min Normal 70-79yrs>42 mL/min Normal 80 and above >35 mL/min Normal Female GFRInterpretation 20-39 yrs >60 mL/min Normal 40-49 yrs >58 mL/minNormal 50-59 yrs >51 mL/min Normal 60-69 yrs >45 mL/min Xzdumm53-70 yrs >39 mL/min Normal 80 and above >32 mL/min NormalLipase: (LEV: 08/21/2020 23:41) ( MsgRcvd 08/22/2020 00:12) Final results Test Result Flag Units (Reference) LIPASE 41 U/L (13 - 60)Urinalysis: (LEV: 08/21/2020 23:20) ( MsgRcvd 08/21/2020 23:36) Final results Test Result Flag Units (Reference) URINALYSIS URINALYSIS 7 Clinical Report - Physicians/Mid Levels [facility] Emergency Department [address] [place] [address] Phone #: ext- [phone] 08/21/2020 21:08 Patient: [...] NEGATIVE (NORMAL: NEGAT { KIT LOT # [id number] ){ KIT EXP DATE 02-05-22 ){ PROCEDURAL [...] treatment. 8 Clinical Report - Physicians/Mid Levels [facility] Emergency Department [address] [place] [address] Phone #: ext- [phone] 08/21/2020 21:08 Patient: [...] Dispense 10 capsule. Refills: 0. Substitution permitted. [facility] [phone] ; [place] [address]. . Pyridium 100 mg tablet Take 1 tablet three times a day for 3 days -- Dispense 9 tablet. Refills: 0. Substitution permitted. [facility] [phone] ; [place] [address]. . Follow-up: Return to the emergency department [...] care. 9 Clinical Report - Physicians/Mid Levels [facility] Emergency Department [address] [place] [address] Phone #: ext- [phone] 08/21/2020 21:08 Patient: DOUG LANTIGUA Sex: F : 1995 Age: 24y(Electronically signed by Taye Pollack M.D. 08/22/2020 04:31) Name Value Range Interpretation Code Description Data Abiola rce(s) Supporting Document(s) ID Date Data Source [id number] 08/22/2020 04:08:00 [place] [address] ---------NAME--------- NUMBER SEX AGE ADMIT DISC. XRAY# F/C TYPE EDYL DOUG [id number] F 24 08/21/20 [id number] SB2 E/R DATE OF : 1995 M/R# [id number] #: [id number] TR-04 LOCATION: EMERGENCY DEPT TRANSCRIBED: 08/22/20 4:[address] ABD //T// PELVIS W/ IV ONLY [id number] COMPLETED:08/22/20 3:05 W [id number] Reason(s): RLQ pain x 3 days PHYSICIAN: CURTIS DONIS==== R A D I O L O G Y R E P O R T ===PATIENT HISTORY:CT ABD //T// PELVIS W/IV CONTRASTDX: RLQ PAIN X 3DAYS. PT RECEIVED 75 ML [address] 370 EXP 06/28 [id number] BUN 8CREATINE 0.6 GFR>60. ACTUAL DOSE 683.5mGY*cmPatient has negative beta. Patient shielded. Verification of 2 patientidentifiers performed.Time Out performed. Correct patient with 2 identifiers, type and amount ofcontrast used, correct body part and side all verified prior to examination. /ABD/PEL (DICOM Hx)EXAM: CT Abdomen and Pelvis with IV contrastCLINICAL HISTORY:CT ABD //T// PELVIS W/IV CONTRAST DX: RLQ PAIN X 3DAYS. PT [id number] ML ISOVUE 370 EXP 06/28 [id number] BUN 8 CREATINE 0.6 GFR>60. ACTUAL WMXY960.5mGY*cm Patient has negative beta. Patient shielded. Verification [...] PT RECEIVED 75 ML [address] EXP 06/[id number]:None provided.FINDINGS:LUNG BASES: The lung bases appear clear. [...] rce(s) Supporting Document(s) ID Date Data Source [id number] 08/22/2020 12:14:00 AM EDT [facility] Name Value Range Interpretation Code Description Data [facility] rce(s) Supporting Document(s) COMPREHENSIVE METABOLIC PANEL [facility] COMPREHENSIVE METABOLIC PANEL Sodium [Moles/volume] in Serum or Plasma 138 mEq/L 134 - 153 [facility] Potassium [Moles/volume] in Serum or Plasma 3.7 mEq/L 3.6 - 5.0 [facility] Chloride [Moles/volume] in Serum or Plasma 103 mEq/L 98 - 107 [facility] Carbon dioxide, total [Moles/volume] in Serum or Plasma 24 MEQ/L 22 - 30 [facility] Glucose [Mass/volume] in Serum or Plasma 107 MG/DL 70 - 99 H [facility] BUN 8 MG/DL 7 - 21 [facility] Creatinine [Mass/volume] in Serum or Plasma 0.6 MG/DL 0.7 - 1.5 L [facility] BUN/CREAT 13 8 - 27 [facility] Protein [Mass/volume] in Serum or Plasma 7.0 G/DL 6.3 - 8.2 [facility] Albumin [Mass/volume] in Serum or Plasma 3.9 G/DL 3.9 - 5.0 [facility] Globulin [Mass/volume] in Serum by calculation 3.1 GM/DL 2.4 - 3.2 [facility] A/G RATIO 1.3 0.8 - 2.0 [facility] Calcium [Mass/volume] in Serum or Plasma 9.4 MG/DL 8.4 - 10.2 [facility] Bilirubin.total [Mass/volume] in Serum or Plasma <0.7 MG/DL 0.2 - 1.3 [facility] Alkaline phosphatase [Enzymatic activity/volume] in Serum or Plasma 96 U/L 38 - 126 [facility] Aspartate aminotransferase [Enzymatic activity/volume] in Serum or Plasma 20 U/L 5 - 40 [facility] Alanine aminotransferase [Enzymatic activity/volume] in Seru m or Plasma 28 U/L 7 - 56 [facility] Anion gap 3 in Serum or Plasma 11.0 mmol/L 8.0 - 16.0 [facility] AGE 24 yrs [facility] al NON-AA GFR >60 mL/min [facility] ital AFR AMER GFR >60 mL/min [facility] Male GFR In [...] >32 mL/min Normal ID Date Data Source [id number] 08/22/2020 12:14:00 AM EDT [facility] Name Value Range Interpretation Code Description Data Abiola rce(s) Supporting Document(s) HCG SERUM QUAL NEGATIVE NORMAL: NEGATIVE [facility] HCG SERUM QL REENTER NEGATIVE NORMAL: NEGATIVE Ca [facility] { KIT LOT # [id number] ){ KIT EXP DATE 02-05-22 ){ PROCEDURAL CONTROL VALID ) ID Date Data Source [id number] 08/22/2020 12:12:00 AM EDT Health System Value Range Interpretation Code Description Data Abiola rce(s) Supporting Document(s) Lipase [Enzymatic activity/volume] in Serum or Plasma 41 U/L 13 - 60 [facility] ID Date Data Source [id number] 08/21/2020 11:59:00 PM EDT [facility] Name Value Range Interpretation Code Description Data Abiola rce(s) Supporting Document(s) Lactate [Moles/volume] in Serum or Plasma 1.7 MMOL/L 0.2 - 2.2 [facility] ID Date Data Source [id number] 08/21/2020 11:59:00 PM EDT [facility] Value Range Interpretation Code Description Data Abiola rce(s) Supporting Document(s) CBC W/AUTOMATED DIFF [facility] COMPLETE BLOOD COUNT Leukocytes [#/volume] in Blood by Automated count 6.8 10^3/uL 4.2 - 1 1.0 [facility] Erythrocytes [#/volume] in Blood by Automated count 4.46 10^6/uL 4. 20 - 5.40 [facility] Hemoglobin [Mass/volume] in Blood 12.9 g/dL 12.0 - 16.0 [facility] Hematocrit [Volume Fraction] of Blood by Automated count 39.0 % 3 7.0 - 47.0 [facility] Erythrocyte mean corpuscular volume [Entitic volume] by Auto mated count 87.4 fL 81.0 - 101 [facility] Erythrocyte mean corpuscular hemoglobin [Entitic mass] by Automated count 28.9 pg 27.0 - 34.0 [facility] Erythrocyte mean corpuscular hemoglobin concentration [Mass/volume] by Automated count 33.1 g/dL 31.0 - 36.0 [facility] Erythrocyte distribution width [Ratio] by Automated count 13.2 % 11.5 - 14.5 [facility] Platelets [#/volume] in Blood by Automated count 303 10^3/uL 150 - 45 0 [facility] Platelet mean volume [Entitic volume] in Blood by Automated count 9.5 fL 7.4 - 10.4 [facility] Neutrophils/100 leukocytes in Blood by Automated count 54.1 % 37. 0 - 80.0 [facility] Lymphocytes/100 leukocytes in Blood by Manual count 35.5 % 25.0 - 40.0 [facility] Monocytes/100 leukocytes in Blood by Automated count 9.0 % 3.0 - 8.0 H [facility] Eosinophils/100 leukocytes in Blood by Automated count 1.0 % 0.0 - 7.0 [facility] Basophils/100 leukocytes in Blood by Automated count 0.3 % 0.0 - 2.5 [facility] %IG 0.1 % 0.0 - 0.0 [facility] %NRBC 0.0 % 0.0 - 0.0 [facility] al Neutrophils [#/volume] in Blood by Automated count 3.68 10^3/uL 2.00 - 6.90 [facility] Lymphocytes [#/volume] in Blood by Automated count 2.42 10^3/uL 0.60 - 3.40 [facility] Monocytes [#/volume] in Blood by Automated count 0.61 10^3/uL 0.00 - 0.90 [facility] Eosinophils [#/volume] in Blood by Automated count 0.07 10^3/uL 0.00 - 0.70 [facility] Basophils [#/volume] in Blood by Automated count 0.02 10^3/uL 0.00 - 0.20 [facility] #IG 0.01 10^3/uL 0.00 - 0.10 [facility] #NRBC 0.00 10^3/uL 0.00 - 0.00 [facility] MANUAL DIFF NOT INDICATED [facility] RBC MORPH NOT INDICATED [facility] ID Date Data Source [id number] 08/25/2020 02:00:00 PM EDT [facility] Name Value Range Interpretation Code Description Data Abiola rce(s) Supporting Document(s) CULTURE URINE [facility] _CULTURE URINE_$$[id number]$$[id number]$$[id number]$$[id number]$$[id number]$$164565$$618447$$[id number]$$584248$$ [id number]$$[id number]$$207363$$652507$$125748$$895227$$725407$$863152$$396045$$445840$$ 545099$$894329$$618973$$186305$$460272$$361920$$[id number]$$[id number] -- Continued on next page --Patient: GRZEGORZ CAMACHO Order: [id number] Page 2Culture: CULTURE URINE Status: Final ====$$[id number]$$[id number] DATE/TIME: 08/25/2020 11:06Culture: CULTURE URINE Status: FinalUrine Culture,Comprehensive: Q0Aaxnl urogenital flora10,000-25,000 colony forming units per mLP1 Test performed by: Jim NAYLOR #: [id number] [address] [place] [address] [id number] [facility] [phone] Director : Darryn Handley MD NPI #:Associate Professor Of Radiology : 08/25/[email or web address] REF ID Date Data Source [id number] 08/21/2020 11:35:00 PM EDT [facility] Name Value Range Interpretation Code Description Data Abiola rce(s) Supporting Document(s) [facility]IS [facility] SOURCE R [facility] COLOR yellow NORMAL: Yellow [facility] CLARITY hazy NORMAL: Clear [facility] Specific gravity of Urine by Test strip 1.010 1.001 - 1.030 [facility] pH 7 5 - 9 [facility] Glucose [Mass/volume] in Urine by Test strip NORM NORMAL: Negat [facility] Bilirubin.total [Presence] in Urine by Test strip NEG NORMAL: Negative [facility] Ketones [Presence] in Urine by Test strip NEG NORMAL: Negative [facility] Protein [Mass/volume] in Urine by Test strip [facility] N[facility] [Presence] in Urine by Test strip NEG NORMAL: Negative [facility] BLOOD 150 NORMAL: Negative A [facility] LEUK EST 25 NORMAL: Negative [facility] Urobilinogen [Mass/volume] in Urine by Test strip 1 less komal n 1.0 mg/dL [facility] MICROSCOPIC See Below [facility] ital WBC 1 - 3 NORMAL: NONE SEEN [facility] Erythrocytes [#/volume] in Urine by Test strip 0 - 1 NORMAL: NON E SEEN [facility] EPITHELIAL MODERATE NORMAL: NONE SEEN A [facility] Bacteria [Presence] in Urine sediment by Light microscopy Tr nicolas NORMAL: NONE SEEN [facility] Mucus [Presence] in Urine sediment by Light microscopy 2+ NOR MAL: NONE SEEN A [facility] Procedure Social History Code Duration Value Status Description Data Source(s ) Smoking 11/12/2020 12:00:00 AM EDT Never Smoker completed Never S moker eCW1 ([facility]) Smoking 11/12/2020 12:00:00 AM EDT Never Smoker completed Never S moker eCW1 ([facility]) Smoking 11/12/2020 12:00:00 AM EDT Never Smoker completed Never S moker eCW1 ([facility]) Smoking 11/12/2020 12:00:00 AM EDT Never Smoker completed Never S moker eCW1 ([facility]) Smoking 11/12/2020 12:00:00 AM EDT Never Smoker completed Never S moker eCW1 ([facility]) Smoking 09/28/2020 12:00:00 AM EDT Never Smoker completed Never S moker eCW1 ([facility]) Smoking 09/28/2020 12:00:00 AM EDT Never Smoker completed Never S moker eCW1 ([facility]) Smoking 09/28/2020 12:00:00 AM EDT Never Smoker completed Never S moker eCW1 ([facility]) Smoking 09/28/2020 12:00:00 AM EDT Never Smoker completed Never S moker eCW1 ([facility]) Smoking 08/21/2020 12:00:00 AM EDT Never Smoker completed Never S moker eCW1 ([facility]) Smoking 03/26/2020 12:00:00 AM EST Never Smoker completed Never S moker eCW1 ([facility]) Smoking 03/26/2020 12:00:00 AM EST Never Smoker completed Never S moker eCW1 ([facility]) Smoking 03/26/2020 12:00:00 AM EST Never Smoker completed Never S moker eCW1 ([facility]) Vital Signs ID Date Data Source UNK Name Value Range Interpretation Code Description Data Source(s) Body weight 194.8 [lb_av] 194.8 [lb_av] [facility] Body height 63 [in_i] 63 [in_i] W1 ([facility]) Body mass index (BMI) [Ratio] 34.507 kg/m2 34.5 07 kg/m2 eCW1 ([facility]) Systolic blood pressure 118 mm[Hg] 118 mm[Hg] e CW1 ([facility]) Diastolic blood pressure 74 mm[Hg] 74 mm[Hg] eCW1 ([facility]) Body weight 190.6 [lb_av] 190.6 [lb_av] eCW1 ([facility] Body height 63 [in_i] 63 [in_i] eCW1 ([facility]) Body mass index (BMI) [Ratio] 33.76 kg/m2 33.76 kg/m2 eCW1 ([facility]) Heart rate 103 /min 103 /min eCW1 ([facility]) Respiratory rate 18 /min 18 /min eCW1 ([facility]) Body temperature 97.8 [degF] 97.8 [degF] eCW1 ( [facility]) Systolic blood pressure 114 mm[Hg] 114 mm[Hg] e CW1 ([facility]) Diastolic blood pressure 78 mm[Hg] 78 mm[Hg] eCW1 ([facility]) Body weight 191 [lb_av] 191 [lb_av] eCW1 ([facility]) Body height 63 [in_i] 63 [in_i] eCW1 ([facility]) Body mass index (BMI) [Ratio] 33.83 kg/m2 33.83 kg/m2 eCW1 ([facility]) Heart rate 86 /min 86 /min eCW1 ([facility]) Respiratory rate 17 /min 17 /min eCW1 ([facility]) Body temperature 97.6 [degF] 97.6 [degF] eCW1 ( [facility]) Systolic blood pressure 119 mm[Hg] 119 mm[Hg] e CW1 ([facility]) Diastolic blood pressure 66 mm[Hg] 66 mm[Hg] eCW1 ([facility]) Body weight 197.4 [lb_av] 197.4 [lb_av] eCW1 ([facility]) Body height 63 [in_i] 63 [in_i] eCW1 ([facility]) Systolic blood pressure 121 mm[Hg] 121 mm[Hg] e CW1 ([facility]) Diastolic blood pressure 65 mm[Hg] 65 mm[Hg] eCW1 ([facility]) Body mass index (BMI) [Ratio] 34.96 kg/m2 34.96 kg/m2 eCW1 ([facility]) Heart rate 68 /min 68 /min eCW1 ([facility]) Respiratory rate 16 /min 16 /min eCW1 [facility] [facility] Body temperature 97.5 [degF] 97.5 [degF] eCW1 ( [facility]) Patient Treatment Plan of Care Planned Activity Planned Date Details Description Data Source (s) Docusate Sodium 100 MG Oral Capsule 11/12/2020 12:00:00 AM EDT eCW1 ([facility]) ferrous gluconate 324 MG Oral Tablet 11/12/2020 12:00:00 AM EDT eCW1 ([facility]) Docusate Sodium 100 MG Oral Capsule 11/12/2020 12:00:00 AM EDT eCW1 ([facility]) ferrous gluconate 324 MG Oral Tablet 11/12/2020 12:00:00 AM EDT eCW1 ([facility]) Docusate Sodium 100 MG Oral Capsule 11/12/2020 12:00:00 AM EDT eCW1 ([facility]) ferrous gluconate 324 MG Oral Tablet 11/12/2020 12:00:00 AM EDT eCW1 ([facility]) Docusate Sodium 100 MG Oral Capsule 11/12/2020 12:00:00 AM EDT eCW1 ([facility]) ferrous gluconate 324 MG Oral Tablet 11/12/2020 12:00:00 AM EDT eCW1 ([facility]) Docusate Sodium 100 MG Oral Capsule 11/12/2020 12:00:00 AM EDT eCW1 ([facility]) ferrous gluconate 324 MG Oral Tablet 11/12/2020 12:00:00 AM EDT eCW1 ([facility]) 27-1 MG 10/01/2020 12:00:00 AM EDT eCW1 ([facility]) 27-1 MG 10/01/2020 12:00:00 AM EDT eCW1 ([facility]) 27-1 MG 10/01/2020 12:00:00 AM EDT eCW1 ([facility]) Amoxicillin 875 MG / Clavulanate 125 MG Oral Tablet 09/29/19 12:00:00 AM EDT eCW1 ([facility]) Amoxicillin 875 MG / Clavulanate 125 MG Oral Tablet 09/29/19 12:00:00 AM EDT eCW1 ([facility]) Amoxicillin 875 MG / Clavulanate 125 MG Oral Tablet 09/29/19 12:00:00 AM EDT eCW1 ([facility]) Amoxicillin 875 MG / Clavulanate 125 MG Oral Tablet 09/29/19 12:00:00 AM EDT eCW1 ([facility]) Ibuprofen 800 MG Oral Tablet 08/12/2020 12:00:00 AM EDT eCW1 ([facility]) Albuterol Sulfate HFA 108 (90 Base) MCG/ACT 03/26/2020 12:00:00 AM EST eCW1 ([facility]) Norgestim-Eth Estrad Triphasic 0.18/0.215/0.25 MG-35 M CG 03/26/2020 12:00:00 AM EST eCW1 ([facility]) Albuterol Sulfate HFA 108 (90 Base) MCG/ACT 03/26/2020 12:00:00 AM EST eCW1 ([facility]) Norgestim-Eth Estrad Triphasic 0.18/0.215/0.25 MG-35 M CG 03/26/2020 12:00:00 AM EST eCW1 ([facility]) Albuterol Sulfate HFA 108 (90 Base) MCG/ACT 03/26/2020 12:00:00 AM EST eCW1 ([facility]) Norgestim-Eth Estrad Triphasic 0.18/0.215/0.25 MG-35 M CG 03/26/2020 12:00:00 AM EST eCW1 ([facility])
== END 2020-12-14 03:31 | disposition left against medical advice (07) ==
LOC: M ED 19:11
DX: Z53.21 Procedure and treatment not carried out due to patient leaving prior to being seen by health care provider (principal)

== ENCOUNTER → 2021-01-15 | Outpatient (CLI) | payer OTHER ==
[~2021-01-15] MED LIST changes: +ACET-840 PO
[2021-01-15 18:13] LABS: APPEARANCE, URINE HAZY (CLEAR); BACTERIA, URINE AUTO NEGATIVE (NEGATIVE); BILIRUBIN, URINE AUTO NEGATIVE (NEGATIVE); BLOOD, URINE BLOOD NEGATIVE (NEGATIVE); CALCIUM OXALATE CRYSTALS SMALL; COLOR, URINE YELLOW (YELLOW); GLUCOSE, URINE (UA) AUTO NEGATIVE (NEGATIVE); KETONE, URINE AUTO NEGATIVE (NEGATIVE); LEUKOCYTE ESTERASE, URINE AUTO NEGATIVE (NEGATIVE); MUCUS, URINE SMALL (NEGATIVE); NITRITE, URINE AUTO NEGATIVE (NEGATIVE); PROTEIN, URINE AUTO NEGATIVE (NEGATIVE); RBC, URINE AUTO 1 /HPF (0-3); SPECIFIC GRAVITY URINE AUTO 1.025 (1.002-1.035); SQUAMOUS EPITHELIAL CELL UR AU 8 /HPF (0-6); UROBILINOGEN, URINE AUTO 0.2 mg/dL (0.0-2.0); WBC, URINE AUTO 1 /HPF (0-3)
== END ==
LOC: M PLALAB 15:37
PROVIDERS: ATTEND Advanced Practice Midwife
DX: O26.899 Other specified pregnancy related conditions, unspecified trimester (principal); Z3A.00 Weeks of gestation of pregnancy not specified

== ENCOUNTER → 2021-01-18 | Outpatient (CLI) | payer OTHER ==
[~2021-01-18] MED LIST changes: +PREN1TAB15 PO
== END ==
LOC: M WHC 08:03
PROVIDERS: ATTEND Advanced Practice Midwife
DX: O30.042 Twin pregnancy, dichorionic/diamniotic, second trimester (principal); Z3A.19 19 weeks gestation of pregnancy

== ENCOUNTER → 2021-01-28 | Outpatient (REF) | payer OTHER ==
[~2021-01-28] MED LIST changes: -PREN1TAB15 PO
== END ==
LOC: M SFHCWAGY 13:11
PROVIDERS: ATTEND Advanced Practice Midwife
DX: O30.042 Twin pregnancy, dichorionic/diamniotic, second trimester (principal); Z3A.00 Weeks of gestation of pregnancy not specified

== ENCOUNTER 2021-02-18 16:40 | Inpatient (IN) | payer OTHER ==
[~2021-02-18] VITALS: Ht 160 cm; Wt 95.3 kg
[2021-02-18 17:41] LABS: AMPHETAMINES LEVEL URINE NEGATIVE (NEGATIVE); BARBITURATES URINE NEGATIVE (NEGATIVE); BENZODIAZEPINES URINE NEGATIVE (NEGATIVE); CANNABINOIDS URINE NEGATIVE (NEGATIVE); COCAINE METABOLITE URINE NEGATIVE (NEGATIVE); METHADONE URINE NEGATIVE (NEGATIVE); OPIATES URINE NEGATIVE (NEGATIVE); PHENCYCLIDINE URINE NEGATIVE (NEGATIVE)
[2021-02-18 18:20] LABS: HEMATOCRIT 35.6 % (36.0-47.0); HEMOGLOBIN 11.9 g/dl (12.0-15.5); MEAN CORPUSCULAR HEMOGLOBIN 29.5 pg (27.0-33.0); MEAN CORPUSCULAR HGB CONC 33.4 g/dl (32.0-36.5); MEAN CORPUSCULAR VOLUME 88.1 fl (80.0-96.0); PLATELET COUNT, AUTOMATED 226 10^3/uL (150-450); RED BLOOD COUNT 4.04 10^6/uL (4.00-5.40); WHITE BLOOD COUNT 10.8 10^3/uL (4.0-10.0)
[2021-02-18 18:53] LABS: ACETAMINOPHEN LEVEL < 2.0 UG/ML (10.0-30.0); ALBUMIN 3.1 GM/DL (3.2-5.2); ALT/SGPT 14 U/L (12-78); BILIRUBIN,DIRECT < 0.1 MG/DL (0.0-0.2); BILIRUBIN,TOTAL 0.3 MG/DL (0.2-1.0); BLOOD UREA NITROGEN 7 MG/DL (7-18); CALCIUM LEVEL 10.1 MG/DL (8.5-10.1); CARBON DIOXIDE LEVEL 21 MEQ/L (21-32); CHLORIDE LEVEL 106 MEQ/L (98-107); CREATININE FOR GFR 0.51 MG/DL (0.55-1.30); ETHYL ALCOHOL (ETHANOL) < 0.003 % (0.000-0.010); GLOMERULAR FILTRATION RATE > 60.0 (>60); GLUCOSE, FASTING 82 MG/DL (70-100); POTASSIUM SERUM 4.2 MEQ/L (3.5-5.1); SALICYLATE LEVEL < 1.7 MG/DL (5.0-30.0); SODIUM LEVEL 139 MEQ/L (136-145); THYROID STIMULATING HORMONE 0.735 uIU/ML (0.358-3.740)
[2021-02-18 23:33] LABS: RSV AMPLIFICATION NEGATIVE (NEGATIVE)
[2021-02-19] MEDS ORDERED: PREN1TAB15 PO (01:06)
[2021-02-19] MEDS ORDERED: HOME MED LIST COMPLETE! XX SCH (01:10)
[2021-02-19] MEDS: PRENATAL VITAMINS CHEWABLE TABLET PO SCH (09:00)
[2021-02-19] MEDS ORDERED: ACETAMINOPHEN TAB 650MG DOSE (2X325MG) PO ONE (12:10)
[2021-02-19] MEDS ORDERED: traZODone 50 MG TAB PO PRN (18:20)
[2021-02-19] MEDS ORDERED: MAALOX 30 ML SUSP *UDC PO PRN (18:20)
[2021-02-19] MEDS ORDERED: ACETAMINOPHEN TAB 650MG DOSE (2X325MG) PO PRN (18:20)
[2021-02-19] MEDS ORDERED: MOM 30ML SUSPENSION UDC PO PRN (18:20)
[2021-02-19 22:00] VITALS: BP 127/77
[2021-02-20 06:58] VITALS: BP 137/78
[2021-02-20] MEDS: PRENATAL VITAMINS CHEWABLE TABLET PO SCH (09:00)
[2021-02-20 17:59] VITALS: BP 152/70
[2021-02-21 06:33] VITALS: BP 129/77
[2021-02-21] MEDS: PRENATAL VITAMINS CHEWABLE TABLET PO SCH (08:13)
[2021-02-22 06:38] VITALS: BP 130/76
[2021-02-22] MEDS: PRENATAL VITAMINS CHEWABLE TABLET PO SCH (08:16)
== END 2021-02-22 14:55 | disposition home or self-care (01) | DRG 833 ==
LOC: M ED 16:40 → M ED INP 02-19 18:17 → M PSY 02-19 21:55
PROVIDERS: ADMIT Psychiatry & Neurology Psychiatry; ATTEND Psychiatry & Neurology Psychiatry
DX: O99.342 Other mental disorders complicating pregnancy, second trimester (principal); F32.A Depression, unspecified; F43.21 Adjustment disorder with depressed mood; O32.1XX1 Maternal care for breech presentation, fetus 1; O32.2XX2 Maternal care for transverse and oblique lie, fetus 2; Z62.810 Personal history of physical and sexual abuse in childhood

== ENCOUNTER → 2021-03-03 | Outpatient (REF) | payer OTHER ==
[~2021-03-03] MED LIST changes: +PREN1TAB15 PO
== END ==
LOC: M SFHCWAGY 12:59
PROVIDERS: ATTEND Advanced Practice Midwife
DX: O30.042 Twin pregnancy, dichorionic/diamniotic, second trimester (principal)

== ENCOUNTER 2021-03-11 23:31 | Outpatient (CLI) | payer OTHER ==
[~2021-03-11] VITALS: Ht 160 cm; Wt 95.5 kg
[2021-03-11 23:56] VITALS: BP 130/77
[2021-03-12] MEDS ORDERED: HOME MED LIST COMPLETE! XX SCH (00:25)
[2021-03-12 01:08] VITALS: BP 120/62
[2021-03-12 01:35] LABS: APPEARANCE, URINE CLEAR (CLEAR); BACTERIA, URINE AUTO NEGATIVE (NEGATIVE); BILIRUBIN, URINE AUTO NEGATIVE (NEGATIVE); BLOOD, URINE BLOOD NEGATIVE (NEGATIVE); COLOR, URINE YELLOW (YELLOW); GLUCOSE, URINE (UA) AUTO NEGATIVE (NEGATIVE); KETONE, URINE AUTO NEGATIVE (NEGATIVE); LEUKOCYTE ESTERASE, URINE AUTO NEGATIVE (NEGATIVE); MUCUS, URINE SMALL (NEGATIVE); NITRITE, URINE AUTO NEGATIVE (NEGATIVE); PROTEIN, URINE AUTO NEGATIVE (NEGATIVE); RBC, URINE AUTO 0 /HPF (0-3); SQUAMOUS EPITHELIAL CELL UR AU 0 /HPF (0-6); UROBILINOGEN, URINE AUTO 0.2 mg/dL (0.0-2.0); WBC, URINE AUTO 2 /HPF (0-3)
== END 2021-03-12 01:46 | disposition home or self-care (01) ==
LOC: M LDO 23:31
PROVIDERS: ATTEND Obstetrics & Gynecology
DX: O26.892 Other specified pregnancy related conditions, second trimester (principal); O30.042 Twin pregnancy, dichorionic/diamniotic, second trimester; R10.2 Pelvic and perineal pain; M54.50 Low back pain, unspecified; R51.9 Headache, unspecified; Z3A.27 27 weeks gestation of pregnancy
CPT/HCPCS: 59025; 76815; 76819; 76820; 81001; G0378; G0463

== ENCOUNTER → 2021-03-24 | Outpatient (CLI) | payer OTHER ==
[2021-03-24 13:17] LABS: HEMATOCRIT 35.4 % (36.0-47.0); HEMOGLOBIN 11.6 g/dl (12.0-15.5); MEAN CORPUSCULAR HEMOGLOBIN 29.8 pg (27.0-33.0); MEAN CORPUSCULAR HGB CONC 32.8 g/dl (32.0-36.5); PLATELET COUNT, AUTOMATED 193 10^3/uL (150-450); RED BLOOD COUNT 3.89 10^6/uL (4.00-5.40); WHITE BLOOD COUNT 7.6 10^3/uL (4.0-10.0)
== END ==
LOC: M PLALAB 09:06
PROVIDERS: ATTEND Advanced Practice Midwife
DX: O30.042 Twin pregnancy, dichorionic/diamniotic, second trimester (principal)
CPT/HCPCS: 36415; 59025; 82950; 85027; 86850; 86900; 86901; G0463

== ENCOUNTER → 2021-04-15 | Outpatient (CLI) | payer OTHER ==
[~2021-04-15] MED LIST changes: +ACET-907 PO
== END ==
LOC: M WHC 09:23
PROVIDERS: ATTEND Advanced Practice Midwife
DX: O30.043 Twin pregnancy, dichorionic/diamniotic, third trimester (principal)

== ENCOUNTER 2021-04-16 10:21 | Inpatient (IN) | payer OTHER ==
[2021-04-16] VITALS (25 sets, daily range): BP systolic 106–179; BP diastolic 56–105
[~2021-04-16] VITALS: Ht 160 cm; Wt 104.2 kg
[~2021-04-16 10:21] MED LIST changes: -ACET-907 PO
[2021-04-16] MEDS ORDERED: LACTATED RINGER'S 1000 ML IV STA (12:12)
[2021-04-16] MEDS ORDERED: MAG Sulf (OBGYN) 20GM/500ML 20,000 MG in IV 1 EA IV SCH (12:25)
[2021-04-16] MEDS ORDERED: MAGNESIUM *L&D* 4GM/100ML BAG (40MG/ML) IV ONE (12:25)
[2021-04-16] MEDS ORDERED: NIFEdipine 10 MG CAP PO ONE ×2 (12:40→12:50)
[2021-04-16] MEDS: BETAMETHASONE SOLUSPAN 6MG/ML 5ML VIAL (J0702 PER 3MG) IM SCH (12:48)
[2021-04-16] MEDS: LR 1,000 ML IV SCH (12:49)
[2021-04-16 13:09] LABS: HEMATOCRIT 34.3 % (36.0-47.0); HEMOGLOBIN 11.7 g/dl (12.0-15.5); MEAN CORPUSCULAR HEMOGLOBIN 29.8 pg (27.0-33.0); MEAN CORPUSCULAR HGB CONC 34.1 g/dl (32.0-36.5); MEAN CORPUSCULAR VOLUME 87.3 fl (80.0-96.0); PLATELET COUNT, AUTOMATED 191 10^3/uL (150-450); RED BLOOD COUNT 3.93 10^6/uL (4.00-5.40); WHITE BLOOD COUNT 6.6 10^3/uL (4.0-10.0)
[2021-04-16] MEDS ORDERED: ACET-907 PO (14:43)
[2021-04-16 16:38] LABS: ALT/SGPT 18 U/L (12-78); BILIRUBIN,TOTAL 0.3 MG/DL (0.2-1.0); CREATININE FOR GFR 0.61 MG/DL (0.55-1.30); GLOMERULAR FILTRATION RATE > 60.0 (>60); LDH LACTATE DEHYDROGENASE 134 U/L (84-246); URIC ACID 4.9 MG/DL (2.6-6.0)
[2021-04-16 17:23] LABS: CREATININE,RANDOM URINE 36.3 MG/DL; TOTAL PROTEIN,RANDOM URINE 10.9 MG/DL (0.0-12.0)
[2021-04-16] MEDS ORDERED: LABETALOL 100MG/20ML VIAL IV STA (18:35)
[2021-04-16] MEDS: ACETAMINOPHEN 500 MG TAB PO PRN (20:18)
[2021-04-17] VITALS (12 sets, daily range): BP systolic 115–132; BP diastolic 62–76
[2021-04-17] MEDS: LR 1,000 ML IV SCH (00:45)
[2021-04-17] MEDS: ACETAMINOPHEN 500 MG TAB PO PRN (02:32)
[2021-04-17] MEDS: BETAMETHASONE SOLUSPAN 6MG/ML 5ML VIAL (J0702 PER 3MG) IM SCH (13:21)
== END 2021-04-17 14:58 | disposition home or self-care (01) | DRG 832 ==
LOC: M LDO 10:21 → M LDI 12:27
PROVIDERS: ADMIT Advanced Practice Midwife; ATTEND Obstetrics & Gynecology
DX: O47.03 False labor before 37 completed weeks of gestation, third trimester (principal); O14.03 Mild to moderate pre-eclampsia, third trimester; O30.043 Twin pregnancy, dichorionic/diamniotic, third trimester; Z3A.32 32 weeks gestation of pregnancy; O99.343 Other mental disorders complicating pregnancy, third trimester; F43.23 Adjustment disorder with mixed anxiety and depressed mood; O32.1XX1 Maternal care for breech presentation, fetus 1

== ENCOUNTER → 2021-04-22 | Outpatient (CLI) | payer OTHER ==
[~2021-04-22] MED LIST changes: +ACET-907 PO
== END ==
LOC: M WHC 08:57
PROVIDERS: ATTEND Advanced Practice Midwife
DX: O30.043 Twin pregnancy, dichorionic/diamniotic, third trimester (principal); O36.5931 Maternal care for other known or suspected poor fetal growth, third trimester, fetus 1

== ENCOUNTER → 2021-04-29 | Outpatient (CLI) | payer OTHER ==
[~2021-04-29] MED LIST changes: +FERR32TA PO; +IBUP80TA PO; +OMEP-173 PO; +OXYC1TAB23 PO
== END ==
LOC: M WHC 08:53
PROVIDERS: ATTEND Advanced Practice Midwife
DX: O30.043 Twin pregnancy, dichorionic/diamniotic, third trimester (principal); O36.5931 Maternal care for other known or suspected poor fetal growth, third trimester, fetus 1; Z3A.33 33 weeks gestation of pregnancy
CPT/HCPCS: 76816; 76819; 76820; 76821; G0463

== ENCOUNTER 2021-05-05 13:12 | Inpatient (IN) | payer OTHER ==
[2021-05-05] VITALS (14 sets, daily range): BP systolic 129–148; BP diastolic 74–94
[~2021-05-05] VITALS: Ht 160 cm; Wt 105.8 kg
[~2021-05-05 13:12] MED LIST changes: -FERR32TA PO; -IBUP80TA PO; -OMEP-173 PO; -OXYC1TAB23 PO
[2021-05-05] MEDS ORDERED: PERCOCET 5MG/325MG TAB PO ONE (14:00)
[2021-05-05] MEDS ORDERED: LACTATED RINGER'S 1000 ML IV STA (14:49)
[2021-05-05] MEDS ORDERED: CARBOPROST TROMETHAMINE 250 MCG/ML AMP IM PRN (14:50)
[2021-05-05] MEDS ORDERED: TRANEXAMIC ACID INJection 1,000 MG in NS 100 ML IV PRN (14:50)
[2021-05-05] MEDS ORDERED: ceFAZolin SOD 2 GM in IV 1 EA IV ONE (14:50)
[2021-05-05] MEDS ORDERED: OXYTOCIN DRIP 30 UNITS in IV 1 EA IV PRN (14:50)
[2021-05-05] MEDS ORDERED: BICITRA 30ML SOLN UDC PO ONE (14:50)
[2021-05-05 15:17] LABS: CREATININE,RANDOM URINE 50.7 MG/DL; TOTAL PROTEIN,RANDOM URINE 14.4 MG/DL (0.0-12.0)
[2021-05-05 15:19] LABS: HEMATOCRIT 35.6 % (36.0-47.0); MEAN CORPUSCULAR HEMOGLOBIN 29.3 pg (27.0-33.0); MEAN CORPUSCULAR HGB CONC 33.7 g/dl (32.0-36.5); PLATELET COUNT, AUTOMATED 190 10^3/uL (150-450); RED BLOOD COUNT 4.09 10^6/uL (4.00-5.40); WHITE BLOOD COUNT 6.9 10^3/uL (4.0-10.0)
[2021-05-05 15:38] LABS: ALT/SGPT 16 U/L (12-78); BILIRUBIN,TOTAL 0.3 MG/DL (0.2-1.0); CREATININE FOR GFR 0.62 MG/DL (0.55-1.30); GLOMERULAR FILTRATION RATE > 60.0 (>60); LDH LACTATE DEHYDROGENASE 152 U/L (84-246); URIC ACID 4.6 MG/DL (2.6-6.0)
[2021-05-05] MEDS: LR 1,000 ML IV SCH ×3 (15:41→23:57)
[2021-05-05] MEDS ORDERED: MORPHINE PRES-FREE INJ 10 MG/10 ML VIAL As Ordered ONE (20:07)
[2021-05-05] MEDS ORDERED: PHENYLephrine 500MCG 5ML (100MCG/ML) SYRINGE As Ordered ONE ×2 (20:08→21:04)
[2021-05-05] MEDS ORDERED: OXYTOCIN 30 UNITS IN 0.9% NaCl 500ML IV BAG (J2590) As Ordered ONE ×2 (20:08→22:07)
[2021-05-05] MEDS ORDERED: ePHEDrine SULFATE 25 MG/5 ML(5MG/ML) SYRINGE As Ordered ONE (20:08)
[2021-05-05] MEDS ORDERED: ONDANSETRON 4MG/2ML VIAL IV PRN ×3 (20:38→21:40)
[2021-05-05] MEDS ORDERED: NALBUPHINE HCL 10 MG/ML AMP (J2300) IV PRN ×2 (20:38→21:30)
[2021-05-05] MEDS ORDERED: NALOXONE INJ 0.4MG/1ML VIAL (J2310 PER 1MG) IV PRN ×2 (20:38)
[2021-05-05] MEDS ORDERED: diphenhydrAMINE 50MG/ML VIAL (J1200) IV PRN (20:38)
[2021-05-05] MEDS ORDERED: METOCLOPRAMIDE INJ 10MG/2ML VIAL (J2765 PER 1) IV PRN (20:38)
[2021-05-05] MEDS ORDERED: METOCLOPRAMIDE INJ 10MG/2ML VIAL (J2765 PER 1) As Ordered ONE (20:43)
[2021-05-05] MEDS ORDERED: ONDANSETRON 4MG/2ML VIAL As Ordered ONE (21:01)
[2021-05-05] MEDS ORDERED: KETOROLAC 60MG 2ML VIAL As Ordered ONE (21:01)
[2021-05-05] MEDS ORDERED: MEPERIDINE INJ 25 MG/ML VIAL (J2175) IV PRN (21:30)
[2021-05-05] MEDS ORDERED: HYDROMORPHONE HCL 0.5 MG/ 0.5 ML SYRINGE (J1170 PER 1) IV PRN (21:30)
[2021-05-05] MEDS ORDERED: oxyCODONE 5MG TAB PO PRN (21:30)
[2021-05-05] MEDS ORDERED: fentaNYL 100 MCG/2 ML INJECTION IV PRN (21:30)
[2021-05-05] MEDS ORDERED: PERCOCET 5MG/325MG TAB PO PRN (21:40)
[2021-05-05] MEDS ORDERED: OXYTOCIN DRIP 30 UNITS in IV 1 EA IV SCH (21:40)
[2021-05-05] MEDS ORDERED: RHOGAM 300 MCG (1500 IU) INJ (J2790) IM SCH (21:40)
[2021-05-05] MEDS ORDERED: SIMETHICONE 80MG CHEW TAB PO PRN (21:40)
[2021-05-05] MEDS ORDERED: MEASLES,MUMPS,RUBELLA VACCINE INJ (MMR-II) (90707) SC SCH (21:40)
[2021-05-06] VITALS (9 sets, daily range): BP systolic 133–148; BP diastolic 78–85
[2021-05-06] MEDS: PERCOCET 5MG/325MG TAB PO PRN (00:23)
[2021-05-06] MEDS ORDERED: LR 500 ML IV ONE (03:05)
[2021-05-06] MEDS: KETOROLAC 30 MG/ML 1ML VIAL IV SCH ×3 (04:28→16:41)
[2021-05-06 07:47] LABS: HEMATOCRIT 31.8 % (36.0-47.0); HEMOGLOBIN 10.5 g/dl (12.0-15.5); MEAN CORPUSCULAR HEMOGLOBIN 29.2 pg (27.0-33.0); MEAN CORPUSCULAR VOLUME 88.6 fl (80.0-96.0); PLATELET COUNT, AUTOMATED 154 10^3/uL (150-450); RED BLOOD COUNT 3.59 10^6/uL (4.00-5.40); WHITE BLOOD COUNT 8.3 10^3/uL (4.0-10.0)
[2021-05-06] MEDS ORDERED: OMEP-173 PO (08:21)
[2021-05-06] MEDS ORDERED: FERR32TA PO (08:21)
[2021-05-06] MEDS ORDERED: IBUP80TA PO (08:50)
[2021-05-06] MEDS ORDERED: OXYC1TAB23 PO (08:50)
[2021-05-06] MEDS: LR 1,000 ML IV SCH (09:33)
[2021-05-06] MEDS: PRENATAL VITAMINS CHEWABLE TABLET PO SCH (09:54)
[2021-05-06] MEDS: DOCUSATE SODIUM 100MG CAPSULE PO PRN (21:21)
[2021-05-06] MEDS: IBUPROFEN 800 MG TAB PO SCH (23:07)
[2021-05-07 02:00] VITALS: BP 131/74
[2021-05-07 06:00] VITALS: BP 131/80
[2021-05-07] MEDS: IBUPROFEN 800 MG TAB PO SCH ×3 (07:34→23:51)
[2021-05-07] MEDS: PRENATAL VITAMINS CHEWABLE TABLET PO SCH (07:34)
[2021-05-07 10:00] VITALS: BP 133/78
[2021-05-07] MEDS: PERCOCET 5MG/325MG TAB PO PRN (12:10)
[2021-05-07 18:00] VITALS: BP 130/76
[2021-05-07 21:58] VITALS: BP 136/86
[2021-05-07] MEDS: DOCUSATE SODIUM 100MG CAPSULE PO PRN (23:50)
[2021-05-08 06:00] VITALS: BP 138/84
[2021-05-08] MEDS: IBUPROFEN 800 MG TAB PO SCH (07:51)
[2021-05-08] MEDS: PRENATAL VITAMINS CHEWABLE TABLET PO SCH (07:52)
== END 2021-05-08 12:45 | disposition home or self-care (01) | DRG 785 ==
LOC: M LDO 13:12 → M LDI 14:19 → M OBS 23:18
PROVIDERS: ADMIT Advanced Practice Midwife; ATTEND Specialist
PROC: 0UB70ZZ Excision of Bilateral Fallopian Tubes, Open Approach (ICD-10-PCS; 2021-05-05)
PROC: 10D00Z1 Extraction of Products of Conception, Low, Open Approach (ICD-10-PCS; principal; 2021-05-05 19:00)
DX: O14.14 Severe pre-eclampsia complicating childbirth (principal); Z3A.34 34 weeks gestation of pregnancy; O36.5931 Maternal care for other known or suspected poor fetal growth, third trimester, fetus 1; O30.043 Twin pregnancy, dichorionic/diamniotic, third trimester; O32.8XX1 Maternal care for other malpresentation of fetus, fetus 1; Z37.2 Twins, both liveborn; Z30.2 Encounter for sterilization

== ENCOUNTER 2021-07-29 16:37 | Emergency (ER) | payer OTHER ==
[~2021-07-29] VITALS: Ht 160 cm; Wt 95.1 kg
[~2021-07-29 16:37] MED LIST changes: +FERR32TA PO; +IBUP80TA PO; +OMEP-173 PO; +OXYC1TAB23 PO
[2021-07-29 18:28] LABS: BASO % 0.2 % (0.0-1.0); EOS # 0.1 10^3/uL (0.0-0.5); EOS % 1.6 % (0.0-3.0); HEMATOCRIT 42.5 % (36.0-47.0); HEMOGLOBIN 13.9 g/dl (12.0-15.5); LYMPH % 41.7 % (24.0-44.0); MEAN CORPUSCULAR HGB CONC 32.7 g/dl (32.0-36.5); MEAN CORPUSCULAR VOLUME 85.5 fl (80.0-96.0); MONO # 0.4 10^3/uL (0.0-0.8); MONO % 7.2 % (2.0-8.0); NEUTROPHILS # 2.4 10^3/uL (1.5-8.5); NEUTROPHILS % 49.1 % (36.0-66.0); PLATELET COUNT, AUTOMATED 287 10^3/uL (150-450); RED BLOOD COUNT 4.97 10^6/uL (4.00-5.40); WHITE BLOOD COUNT 4.9 10^3/uL (4.0-10.0)
[2021-07-29 18:49] LABS: ALBUMIN 3.8 GM/DL (3.2-5.2); ALT/SGPT 28 U/L (12-78); BILIRUBIN,DIRECT < 0.1 MG/DL (0.0-0.2); BILIRUBIN,TOTAL 0.3 MG/DL (0.2-1.0); BLOOD UREA NITROGEN 9 MG/DL (7-18); CALCIUM LEVEL 9.1 MG/DL (8.5-10.1); CARBON DIOXIDE LEVEL 25 MEQ/L (21-32); CHLORIDE LEVEL 105 MEQ/L (98-107); GLOMERULAR FILTRATION RATE > 60.0 (>60); GLUCOSE, FASTING 85 MG/DL (70-100); POTASSIUM SERUM 3.8 MEQ/L (3.5-5.1); SODIUM LEVEL 138 MEQ/L (136-145)
[2021-07-29 19:32] LABS: HCG, SERUM QUALITATIVE NEGATIVE (NEGATIVE)
[2021-07-29] MEDS ORDERED: IBUP80TA PO (20:01)
[2021-07-29] MEDS ORDERED: PROV10TA PO (20:01)
[2021-07-29 20:08] VITALS: BP 134/89
[2021-07-29 20:39] LABS: GC DNA AMPLIFICATION NEGATIVE (NEGATIVE)
== END 2021-07-29 20:09 | disposition home or self-care (01) ==
LOC: M ED 16:37
DX: N93.8 Other specified abnormal uterine and vaginal bleeding (principal); Z91.013 Allergy to seafood

== ENCOUNTER → 2021-10-20 | Outpatient (REF) | payer OTHER ==
[~2021-10-20] MED LIST changes: +PROV10TA PO
[2021-10-20 19:59] LABS: GC DNA AMPLIFICATION NEGATIVE (NEGATIVE)
[2021-10-20 20:06] LABS: APPEARANCE, URINE MANUAL HAZY (CLEAR); COLOR, URINE MANUAL YELLOW (YELLOW)
[2021-10-20 20:07] LABS: BILIRUBIN, URINE MANUAL NEGATIVE (NEGATIVE); BLOOD URINE MANUAL NEGATIVE (NEGATIVE); GLUCOSE, URINE (UA) MANUAL NEGATIVE (NEGATIVE); KETONE, URINE MANUAL NEGATIVE (NEGATIVE); LEUKOCYTE ESTERASE, URINE MAN NEGATIVE (NEGATIVE); NITRITE, URINE MANUAL NEGATIVE (NEGATIVE); PROTEIN, URINE MANUAL NEGATIVE (NEGATIVE); SPECIFIC GRAVITY,URINE MANUAL 1.025 (1.002-1.035); UROBILINOGEN, URINE MANUAL NORMAL (NORMAL)
[2021-10-20 20:25] LABS: AMORPHOUS SEDIMENT, URINE LARGE AMOUNT (NEGATIVE); BACTERIA, URINE NONE SEEN; HYALINE CAST, URINE NONE SEEN /lpf (0-1); RBC, URINE NONE SEEN /hpf (0-3); SQUAMOUS EPITHELIAL CELL URINE SMALL AMOUNT /hpf (SMALL AMT); WBC, URINE NONE SEEN /hpf (0-3)
== END ==
LOC: M SFHCLERA 11:59
PROVIDERS: ATTEND Physician Assistant
DX: Z01.419 Encounter for gynecological examination (general) (routine) without abnormal findings (principal); N93.8 Other specified abnormal uterine and vaginal bleeding

== ENCOUNTER 2021-12-07 10:13 | Emergency (ER) | payer OTHER ==
[~2021-12-07] VITALS: Ht 160 cm; Wt 95.3 kg
[2021-12-07 10:13] VITALS: BP 132/73
[2021-12-07 12:27] LABS: BASO % 0.4 % (0.0-1.0); EOS # 0.1 10^3/uL (0.0-0.5); EOS % 1.4 % (0.0-3.0); HEMATOCRIT 40.7 % (36.0-47.0); LYMPH # 1.9 10^3/uL (1.5-5.0); LYMPH % 38.5 % (24.0-44.0); MEAN CORPUSCULAR HEMOGLOBIN 28.2 pg (27.0-33.0); MEAN CORPUSCULAR HGB CONC 31.9 g/dl (32.0-36.5); MEAN CORPUSCULAR VOLUME 88.3 fl (80.0-96.0); MONO # 0.4 10^3/uL (0.0-0.8); MONO % 8.7 % (2.0-8.0); NEUTROPHILS # 2.5 10^3/uL (1.5-8.5); NEUTROPHILS % 50.8 % (36.0-66.0); PLATELET COUNT, AUTOMATED 286 10^3/uL (150-450); RED BLOOD COUNT 4.61 10^6/uL (4.00-5.40)
[2021-12-07 13:06] LABS: HCG, SERUM QUALITATIVE NEGATIVE (NEGATIVE)
[2021-12-07] MEDS ORDERED: ACETAMINOPHEN TAB 650MG DOSE (2X325MG) PO ONE (13:15)
[2021-12-07] MEDS ORDERED: IBUPROFEN 800 MG TAB PO ONE (13:15)
[2021-12-07 13:16] LABS: ALBUMIN 3.7 GM/DL (3.2-5.2); ALT/SGPT 22 U/L (12-78); BILIRUBIN,DIRECT 0.1 MG/DL (0.0-0.2); BILIRUBIN,TOTAL 0.5 MG/DL (0.2-1.0); BLOOD UREA NITROGEN 8 MG/DL (7-18); CALCIUM LEVEL 9.4 MG/DL (8.5-10.1); CARBON DIOXIDE LEVEL 26 MEQ/L (21-32); CHLORIDE LEVEL 106 MEQ/L (98-107); CREATININE FOR GFR 0.58 MG/DL (0.55-1.30); GLOMERULAR FILTRATION RATE > 60.0 (>60); GLUCOSE, FASTING 94 MG/DL (70-100); LIPASE 130 U/L (73-393); POTASSIUM SERUM 4.2 MEQ/L (3.5-5.1); SODIUM LEVEL 138 MEQ/L (136-145); TOTAL PROTEIN 7.5 GM/DL (6.4-8.2)
[2021-12-07] MEDS ORDERED: NAPR-837 PO (14:50)
[2021-12-07] MEDS ORDERED: OLOP2.5D3 OU (14:50)
== END 2021-12-07 15:05 | disposition home or self-care (01) ==
LOC: M ED 10:13
DX: R10.2 Pelvic and perineal pain (principal); M62.830 Muscle spasm of back; H57.89 Other specified disorders of eye and adnexa; Z87.442 Personal history of urinary calculi; Z91.013 Allergy to seafood; Z79.899 Other long term (current) drug therapy

== ENCOUNTER → 2022-04-21 | Outpatient (CLI) | payer OTHER ==
[~2022-04-21] MED LIST changes: +NAPR-837 PO; +OLOP2.5D3 OU
== END ==
LOC: M RAD 13:40
PROVIDERS: ATTEND Physician Assistant
DX: M25.561 Pain in right knee (principal); M25.562 Pain in left knee; M54.6 Pain in thoracic spine; G89.29 Other chronic pain

== ENCOUNTER → 2022-09-09 | Outpatient (CLI) | payer OTHER | LOC: M PLAIMG 09:59 | PROVIDERS: ATTEND Physician Assistant | DX: M25.462 Effusion, left knee (principal); M76.52 Patellar tendinitis, left knee; M25.562 Pain in left knee ==

== ENCOUNTER → 2023-01-12 | Outpatient (REF) | payer OTHER | LOC: M PLALAB 10:55 | PROVIDERS: ATTEND Advanced Practice Midwife | DX: Z01.419 Encounter for gynecological examination (general) (routine) without abnormal findings (principal); Z12.4 Encounter for screening for malignant neoplasm of cervix ==

== ENCOUNTER → 2023-01-20 | Outpatient (CLI) | payer OTHER | LOC: M WHC 13:08 | PROVIDERS: ATTEND Advanced Practice Midwife | DX: R10.2 Pelvic and perineal pain (principal); N94.10 Unspecified dyspareunia; N88.8 Other specified noninflammatory disorders of cervix uteri ==